=== PATIENT | male | born 1950 | race Caucasian/White ===

== ENCOUNTER 2021-05-25 14:49 | Emergency (ER) | payer OTHER, SELFPAY ==
--- NOTE | ~2021-05-25 | XR_ITS ---
EXAMINATION: XR chest 2V DATE: 05/25/2021 15:30 INDICATION: Fever, cough, and wheezing. TECHNIQUE: Frontal and lateral views of the chest were obtained. COMPARISON: Chest 2 views 03/27/2016 FINDINGS: There are nodules in the lower lung zones measuring up to 1.6 cm on the left. No pleural ef fusion or pneumothorax. The heart size is normal. Calcified mediastinal lymph nodes are consistent wi th old granulomatous disease. IMPRESSION: 1. Nodules in the lower lung zone suspicious for infection or malignancy. Noncontrast chest CT is rec ommended. Reviewed, dictated and finalized at location B. IMPRESSION: 1. Nodules in the lower lung zone suspicious for infection or malignancy. Nonco ntrast chest CT is recommended.
--- NOTE | 2021-05-25 14:50 | ED.FEVER ---
HPI - Fever General Chief Complaint: Upper Respiratory Infection Stated Complaint: Fever/Chills Time Seen by Provider: 05/25/21 14:50 Source: patient and RN notes reviewed History of Present Illness HPI Narrative: Patient is a 70-year-old male who presents the urgent care with complaints of fever, chills, postnasal drainage and fatigue. Patient states he is also had some chest congestion. Patient is a chronic smoker and denies of any shortness of breath. Patient states has been taking Tylenol for his fever. Denies of any known ill contacts. Denies of any nausea or vomiting. No other acute complaints. No acute distress noted. Patient aware of the plan of care. Some parts of this dictation were generated by voice recognition software and may contain typographical and/or grammatical inaccuracies. Related Data Home Medications Medication Instructions Recorded Confirmed amlodipine 5 mg PO DAILY 05/25/21 05/25/21 lisinopril-hydrochlorothiazide 1 tablet PO DAILY 05/25/21 05/25/21 Allergies Allergy/AdvReac Type Severity Reaction Status Date / Time No Known Allergies Allergy Unverified 05/25/21 15:13 Review of Systems Review of Systems: CONSTITUTIONAL: Reports a fever and chills with fatigue EYES: Denies visual changes, redness, or discharge. ENT: Reports of postnasal drainage, rhinorrhea CARDIOVASCULAR: Denies chest pain, palpitations, or edema. RESPIRATORY: Reports of chest congestion and cough GASTROINTESTINAL: Denies abdominal pain, nausea, vomiting, or diarrhea. GENITOURINARY: Denies dysuria or hematuria. SKIN: Denies rash or itching. MUSCULOSKELETAL: Denies back pain, joint pain, or myalgia. NEUROLOGIC: Denies headache, numbness, or weakness. All other systems reviewed are negative, except as documented in HPI. PMFSH Comments At the time of my signature, I reviewed and agree with the nursing past medical, surgical, social, and family history. There is no relevant family history pertinent to the patient complaint. Exam Narrative: GENERAL: This is a well-nourished, well-developed patient, in no apparent distress. HEAD: normocephalic, atraumatic. EYES: PERRL. Sclera clear/white. Vision is grossly intact. EARS: External ears normal, auditory canals clear and without drainage, TMs normal without perforation. Hearing grossly intact. NOSE: External nose normal with no obvious nasal discharge, nares without redness, no rhinorrhea. THROAT: Mucous membranes moist, moderate erythema noted posterior oropharynx with moderate postnasal drainage NECK: Neck supple, non-tender without lymphadenopathy, masses or thyromegaly. CARDIOVASCULAR: Regular rate and rhythm without murmurs, gallops, or rubs. RESPIRATORY: Inspiratory/expiratory wheezes throughout with crackles SKIN: warm, intact with no suspicious lesions or rash, good texture and turgor. NEURO: awake, alert, and oriented to person, place and time. There were no obvious focal neurologic abnormalities. EXTREMITIES: No clubbing, cyanosis, or edema. Course Course Level of Care: Express Care Visit Vital Signs Vital signs: Vital Signs Temperature 102 F H 05/25/21 14:54 Pulse Rate 100 05/25/21 14:54 Respiratory Rate 28 H 05/25/21 14:54 Blood Pressure 150/67 H 05/25/21 14:54 Pulse Oximetry 97 05/25/21 14:54 Temperature 102 F H 05/25/21 14:54 Pulse Rate 100 05/25/21 14:54 Respiratory Rate 28 H 05/25/21 14:54 Blood Pressure 150/67 H 05/25/21 14:54 Pulse Oximetry 97 05/25/21 14:54 Reviewed-patient is informed that they may have pre-hypertension or hypertension based on a blood pressure reading in the department. I recommend the patient call the primary care provider listed on their discharge instructions or a physician of their choice this week to arrange follow-up for further evaluation of possible pre-hypertension or hypertension. MDM - Fever MDM Narrative Medical decision making narrative: Reviewed lab results with the patient. He is aware that
[2021-05-25 14:54] VITALS: BP 150/67; PULSE 100; RESP 28; TEMP 38.8; O2SAT 97
== END 2021-05-25 16:05 | disposition home or self-care (01) ==
PROVIDERS: Emergency Provider Nurse Practitioner Family
DX: R91.1 Solitary pulmonary nodule (principal); J18.1 Lobar pneumonia, unspecified organism; F17.200 Nicotine dependence, unspecified, uncomplicated; Z20.822 Contact with and (suspected) exposure to COVID-19
CPT/HCPCS: 71046; 87426; 87804; 99203; C9803; G0463

== ENCOUNTER 2022-10-29 16:02 | Emergency (ER) | payer OTHER, SELFPAY ==
[2022-10-29 16:12] VITALS: BP 126/62; PULSE 104; RESP 20; TEMP 37.5; O2SAT 93
--- NOTE | 2022-10-29 16:57 | ED.URI ---
HPI - URI/Sore Throat General Chief Complaint: Upper Respiratory Infection Stated Complaint: shortness of breath History of Present Illness HPI Narrative: Patient presents with productive cough at times feels short of breath at times. No chest pain no fever. Patient states he tired started taking Mucinex and does have a productive cough at times Related Data Home Medications Medication Instructions Recorded Confirmed amlodipine 5 mg tablet 5 mg PO DAILY 05/25/21 10/29/22 lisinopril 20 1 tablet PO DAILY 05/25/21 10/29/22 mg-hydrochlorothiazide 12.5 mg tablet Allergies Allergy/AdvReac Type Severity Reaction Status Date / Time No Known Allergies Allergy Verified 10/29/22 16:38 Review of Systems Review of Systems: CONSTITUTIONAL: Denies fever, chills, or sweats. EYES: Denies visual changes, redness, or discharge. ENT: Denies rhinorrhea, congestion, sore throat, or otalgia. CARDIOVASCULAR: Denies chest pain, palpitations, or edema. RESPIRATORY: Denies cough or dyspnea. GASTROINTESTINAL: Denies abdominal pain, nausea, vomiting, or diarrhea. GENITOURINARY: Denies dysuria or hematuria. SKIN: Denies rash or itching. MUSCULOSKELETAL: Denies back pain, joint pain, or myalgia. NEUROLOGIC: Denies headache, numbness, or weakness. PSYCHIATRIC: Denies anxiety or depression. PMFSH Comments At time of signature, agree with nursing past medical, surgical, social and family history. There is no relevant family history pertinent to the presenting complaint Exam Narrative: The patient is a well-developed, well-nourished in no acute distress. SKIN: Skin is warm and dry without erythema, swelling or exudate. There is good turgor. No tenting. HEAD: Atraumatic. Normocephalic. No temporal or scalp tenderness. EYES: Moist and bright. Sclera and conjunctivae normal. No discharge. PERRLA. Extraocular motions intact. Gross visual acuity intact. EARS: Pinna is normal shape and contour. Clear external auditory canals. TM pearly davila with good cone of light, no erythema or suppuration. Bilateral cerumen noted no gross hearing deficit. NOSE: pink, moist mucosa with good air movement. Clear rhinorrhea without nasal flaring. Septum midline. Mouth: moist mucous membranes. THROAT; mild erythema noted to posterior oropharynx with moderate postnasal drainage. Without exudate or ulceration.. Uvula midline. Normal movement of soft palate. NECK: Supple and nontender with full range of motion without discomfort. No meningeal signs. LUNGS: Equal and bilateral breath sounds without wheezes, rales or rhonchi. CHEST: The chest wall is without retractions or use of accessory muscles. Few scattered inspiratory wheezes HEART: Has a regular rate and rhythm without murmur, gallops, click or rub. ABDOMEN: Soft, nontender with positive active bowel sounds. No rebound tenderness. EXTREMITIES: Without cyanosis, clubbing or edema. Equal 2+ distal pulses and 2 second capillary refill noted. NEUROLOGIC: alert, active, . The patient moves all extremities with normal muscle strength. Normal muscle tone is noted. Normal coordination is noted. NO focal neurological findings noted. Course Course Level of Care: Express Care Visit Vital Signs Vital signs: Vital Signs Temperature 37.5 C 10/29/22 16:12 Pulse Rate 104 H 10/29/22 16:12 Respiratory Rate 20 10/29/22 16:12 Blood Pressure 126/62 10/29/22 16:12 Pulse Oximetry 93 10/29/22 16:12 Oxygen Delivery Room Air 10/29/22 16:12 Temperature 37.5 C 10/29/22 16:12 Pulse Rate 104 H 10/29/22 16:12 Respiratory Rate 20 10/29/22 16:12 Blood Pressure 126/62 10/29/22 16:12 Pulse Oximetry 93 10/29/22 16:12 Oxygen Delivery Room Air 10/29/22 16:12 MDM - URI/Sore Throat Lab Data Labs: Lab Results 10/29/22 Range/Units 16:28 POC SARS CoV-2 Ag Negative (Negative) Influenza A Screen Negative Referenc
== END 2022-10-29 17:03 | disposition home or self-care (01) ==
PROVIDERS: Emergency Provider Nurse Practitioner Family
DX: J06.9 Acute upper respiratory infection, unspecified (principal); J44.9 Chronic obstructive pulmonary disease, unspecified; Z79.899 Other long term (current) drug therapy; Z20.822 Contact with and (suspected) exposure to COVID-19
CPT/HCPCS: 87426; 87804; 99213; C9803; G0463

== ENCOUNTER 2023-10-16 14:24 | Emergency (ER) | payer OTHER, SELFPAY ==
[2023-10-16 14:38] VITALS: BP 141/70; PULSE 81; RESP 20; TEMP 37.4; O2SAT 95
[2023-10-16 14:40] VITALS: BP 141/70; PULSE 81; RESP 20; TEMP 37.4; O2SAT 95
--- NOTE | 2023-10-16 14:55 | ED.BACK ---
HPI - Back Pain/Injury General Chief Complaint: Back Pain/Injury Stated Complaint: Urinary Problem Time Seen by Provider: 10/16/23 14:53 Source: patient, family, RN notes reviewed and old records reviewed Mode of arrival: ambulatory Limitations: no limitations History of Present Illness HPI Narrative: 73 year old male presents to [facility] care with complaints of low back pain for 1 week duration. Patient reports no burning,urgency or frequency of urination no CVA tenderness on exam. Patient reports that he has heart problems and he thought he should get some exercise so he has been riding a bicycle and wonders if pain is related to that. Patient reports that he has taken some Tylenol and he has also been using heating pad with vibration to his lower back for discomfort. Patient reports that he was diagnosed with heart problems about 6 months ago and he quit smoking then.Patient reports that he has history of prior back strain. MD elicited complaint: back pain Onset (ago): week(s) (1) Severity: moderate Pain scale (0-10): 4 Quality: aching Treatments prior to arrival: heat therapy and acetaminophen Related Data Home Medications Medication Instructions Recorded Confirmed amlodipine 5 mg tablet 5 mg PO DAILY 05/25/21 10/29/22 lisinopril 20 1 tablet PO DAILY 05/25/21 10/29/22 mg-hydrochlorothiazide 12.5 mg tablet aspirin 81 mg tablet,delayed mg 10/16/23 release atorvastatin 10 mg tablet mg 10/16/23 carvedilol 3.125 mg tablet mg 10/16/23 clopidogrel 75 mg tablet mg 10/16/23 empagliflozin 10 mg tablet mg 10/16/23 (Jardiance) furosemide 40 mg tablet mg 10/16/23 pantoprazole 40 mg tablet,delayed mg PO 10/16/23 release sacubitril 24 mg-valsartan 26 mg tablet 10/16/23 tablet (Entresto) spironolactone 25 mg tablet mg 10/16/23 Allergies Allergy/AdvReac Type Severity Reaction Status Date / Time No Known Allergies Allergy Verified 10/29/22 16:38 Review of Systems Review of Systems: CONSTITUTIONAL: Denies fever, chills, or sweats. EYES: Denies visual changes, redness, or discharge. ENT: Denies rhinorrhea, congestion, sore throat, or otalgia. CARDIOVASCULAR: Denies chest pain, palpitations, or edema. RESPIRATORY: Denies cough or dyspnea. GASTROINTESTINAL: Denies abdominal pain, nausea, vomiting, or diarrhea. GENITOURINARY: Denies dysuria or hematuria. SKIN: Denies rash or itching. MUSCULOSKELETAL: Reports low back pain, joint pain, or myalgia. NEUROLOGIC: Denies headache, numbness, or weakness. PSYCHIATRIC: Positive for anxiety or depression. All systems reviewed & are unremarkable except as noted in HPI and below PMFSH Past Medical History Medical History (Updated 10/17/23 @ 15:40 by Melva Scales NP) Anxiety and depression CHF (congestive heart failure), NYHA class III COPD (chronic obstructive pulmonary disease) GERD (gastroesophageal reflux disease) Hypertension Presence of combination internal cardiac defibrillator (ICD) and pacemaker Social History Social History (Updated 10/17/23 @ 15:30 by Melva Scales NP) Smoking packs per day: 2 Smoking cigarettes per day: 40.0 Years smoked: 50 Smoking pack-years: 100.00 Smoking status: Former smoker Tobacco type: cigarettes Alcohol intake: former Substance use type: does not use Gender identity (if verbalized by the patient): Male Comments At time of signature, agree with nursing past medical, surgical, social and family history. There is no relevant family history pertinent to the presenting complaint Exam Narrative: GENERAL: Well-appearing, well-nourished, and in no acute distress. HEAD: Normocephalic, atraumatic. EYES: PERRLA and EOMI. ENT: Nares clear, no rhinorrhea or epistaxis. Mucous membranes moist. NECK: Supple.no lymphadenopathy CHEST: Decreased to auscultation. No respiratory distress.SAO2 95% on room air HEART: Regular rate and rhythm. No murmur heard. Normal peripheral pulses, . ABDOMEN: Soft,
== END 2023-10-16 15:13 | disposition home or self-care (01) ==
PROVIDERS: Emergency Provider Registered Nurse
DX: S39.012A Strain of muscle, fascia and tendon of lower back, initial encounter (principal); X58.XXXA Exposure to other specified factors, initial encounter; I11.0 Hypertensive heart disease with heart failure; I50.9 Heart failure, unspecified; J44.9 Chronic obstructive pulmonary disease, unspecified; K21.9 Gastro-esophageal reflux disease without esophagitis; Z95.810 Presence of automatic (implantable) cardiac defibrillator; Z87.891 Personal history of nicotine dependence
CPT/HCPCS: 99213; G0463

== ENCOUNTER 2024-07-08 14:29 | Emergency (ER) | payer OTHER, SELFPAY ==
--- NOTE | ~2024-07-08 | XR_ITS ---
XR pelvis 1-2V 07/08/2024 15:35 Indication: Low back pain Procedure: AP pelvis Comparison: No prior studies for comparison. Findings: Pelvic rings intact. There is lower lumbar spondylosis. There is mild osteoarthritis of the hips. No fracture, subluxation or dislocation. Sacral foramen are symmetric. Impression: 1: Mild osteoarthritis of the hips. Reviewed, dictated and finalized at location A. Impression: 1: Mild osteoarthritis of the hips.
--- NOTE | ~2024-07-08 | XR_ITS ---
EXAMINATION: XR lumbar spine 2-3V DATE: 07/08/2024 15:35 INDICATION: Bilateral low back pain TECHNIQUE: Anteroposterior and lateral views of the lumbar spine, and cone-down lateral view of the l umbosacral junction were obtained. COMPARISON: None. FINDINGS: 9 degrees lumbar dextrocurvature. Sagittal alignment is normal. Vertebral body heights are normal. Mi ld disc height loss at L1-L2, L4-L5 and L5-S1. Atherosclerotic abdominal aorta extending into the [place] ateral iliac and visualized proximal femoral arteries. Mild bilateral hip and sacroiliac osteoarthrit is. Bone island at the right femoral head. IMPRESSION: 1. 9 degrees lumbar dextrocurvature with mild spondylosis. Reviewed, dictated and finalized at location A.
--- OUTSIDE RECORDS SUMMARY | 2024-07-08 14:35 | XMS_ITS ---
Author Organization [facility] Address [address] [facility], [address] [address] Phone Care Team Providers Care Loom Setter Name Role Phone Marina Villafana MD Primary Care Provider [facility] Status:Enrolled (Active) Start date:03/05/2024 Enrollment date:03/05/2024 Related social drivers of health:Social Connections, Alcohol Use, Tobacco Use, Financial Resource Strain, Depression, Stress, Physical Activity, Food Insecurity, Transportation Needs, Housing Stability, Utilities Continued Care and Services Coordination
--- OUTSIDE RECORDS SUMMARY | 2024-07-08 14:36 | XMS_ITS | Data Portability ---
Author Organization [facility] [place] [facility] Address [address] [place] [address] Care Team Providers Care Tomographic Tech Name Role Phone HUGH ONEILLSAGRARIODAR Primary Care Provider MAMI MONTOYA Intelligence Group Supervisor MAKENZIE EVANS Sludge Control Attendant Assessment No assessment recorded. Plan of Treatment Reminders Order Date Submit Date Provider Last Modified By Organization Details Last Modified Time Details Appointments None record ed. Lab CMP, serum or plasma 2022 023 [facility], [address] [place] [address], [address], [place], [address], 3 06:17:00 CBC w/ auto diff 2022 023 [facility], [address] [place] [address], [address], [place], [address], 3 06:17:00 lipid panel, serum 2022 023 [facility], [address] [place] [address], [address], [place], [address], 3 06:16:59 PSA, serum or plasma 2022 023 [facility], [address] [place] [address], [address], [place], [address], 3 08:21:49 TSH, ultra- sensit felix, serum 2022 023 [facility], Han[address], [address], [place], [address], 3 08:21:49 TSH + free T4, serum 2021 [facility], Hanane [address], [address], [place], [address], 08:19:52 T3, free, serum or plasma 2021 [facility], [address], [address], [place], [address], 08:19:55 CMP, serum or plasma 2021 022 [facility], Hanane Macield[address]rizi[address], [address], [place], [address], 08:19:53 lipid panel, serum 2021 022 [facility] QUIÑONESRIM[facility], Hanane [address], [address], [place], [address], 08:19:53 CBC w/ auto diff 2021 022 [facility] QUIÑONESR[facility], [address], [address], [place], [address], 08:19:54 PSA, serum or plasma 2021 022 [facility]ON[facility] Han[address], [address], [place], [address], 08:19:54 TSH + free T4, serum 2021 022 [facility] [address], [address], [place], [address], 2 08:22:31 Referral endocr inolog y referr al 2023 024 [facility], 2 [facility] [address], [place], [address], 4 14:04:28 gastro entero logist referr al 2022 023 Tim Richard MD, [address] [facility] [address], [address], [place], [address], 4 17:51:57 gastro entero logist referr al 2022 023 Kassi Samayoa MD, 1 [facility], [place], [address], 3 17:09:55 genera l surgeo n referr al 2021 022 justin Henley MD, [address] [facility] [address], [place], [address], 3 11:45:15 endocr inolog y referr al 2021 022 justin Mcdonald MD, [address] [facility] [address], [address], [place], [address], 2 15:31:10 genera l surgeo n referr al 2021 022 justin Henley MD, 4 [facility] , [address], [place], [address], 3 11:45:09 gastro entero logist referr al 2021 022 justin Tinsley, [address] [facility] [address], [place], [address], 3 11:10:05 psychi atrist referr al 2021 022 gonsalo [facility], [address] [place], [address], 2 14:10:04 behavi oral health referr al 2021 022 caesar Post (), [address] [place] [address], [address], 2 14:54:31 gastro entero logist referr al 2021 022 Will Tinsley, 4 [facility], [facility] [address] [facility] [address], [place], [address], 2 14:54:11 Procedures None record ed. Surgeries None record ed. Imaging CT, chest, w/o contra st 2022 023 [facility], [address] [place], [address], 4 12:19:18 CT, chest, w/o contra st 2021 022 [facility], [address] [place], [address], 2 12:08:49 XR, lumbos acral spine, 2 or 3 view 2021 022 [facility], [address] [place], [address], 2 03:51:15 CT, chest, w/o contra st 2021 022 [facility]obbinsma [facility], [address] [place], [address], 2 11:44:15 Medication Orders ipratr opium 0.5 mg-alb uterol 3 mg (2.5 mg base)/ 3 mL nebuli zation soln 2023 024 [id number] [address] [place], [address], 4 16:27:07 benzon atate 100 mg capsul e 2022 024 [id number] [address] [place], [address], 4 15:37:32 Incrus e Ellipt a 62.5 mcg/ac tuatio n powder for inhala tion 2022 023 [id number] [address] [place], [address], 3 16:34:44 chlorh exidin e glucon ate 0.12 % mouthw gemma 2022 023 [id number] [address] [place], [address], 4 15:35:59 amoxic illin 500 mg capsul e 2022 023 [id number] [address] [place], [address], 3 16:20:43 Symbic ort 160 mcg-4. 5 mcg/ac tuatio n HFA aeroso l inhale r 2022 023 [facility] [address] [place], [address], 4 15:40:05 tizani dine 4 mg tablet 2021 [facility] #6833, [address] [place], [address], 4 15:39:51 meloxi cam 7.5 mg tablet 2021 [facility] #6833, [address] [place], [address], 4 15:37:43 albute rol sulfat e HFA 90 mcg/ac tuatio n aeroso l inhale r 2021 [facility] #[id number], [address] [place], [address], 4 15:40:11 buprop ion HCl XL 150 mg 24 hr tablet , extend ed releas e 2021 [facility] #[id number], [address] [place], [address], 4 15:37:09 Patient TargetsNo targets recorded. Patient Instructions Encounter Date Encounter Id Patient Instructions Last Modified By Organization Details Last Modified Time 06/01/2021 [id number] deciding about using medicines to quit smoking ssuthan Not available 06/01/2021 15:59:08 Quitting Tobacco : Care Instructions ssuthan Not available 06/01/2021 15:59:08 learning about high blood pressure ssuthan Not available 06/01/2021 15:59:08 11/07/2021 [id number] influenza (flu) vaccine: care instructions ssuthan Not available 11/07/2021 15:19:31 deciding about using medicines to quit smoking ssuthan Not available 11/07/2021 15:19:31 Quitting Tobacco : Care Instructions ssuthan Not available 11/07/2021 15:19:30 back care and preventing injuries: care instructions ssuthan Not available 11/07/2021 15:19:31 learning about high blood pressure ssuthan Not available 11/07/2021 15:19:30 04/25/2022 [id number] deciding about using medicines to quit smoking ssuthan Not available 04/25/2022 16:27:38 Quitting Tobacco : Care Instructions ssuthan Not available 04/25/2022 16:27:38 learning about high blood pressure ssuthan Not available 04/25/2022 16:27:38 chronic obstructive pulmonary disease (COPD): care instructions ssuthan Not available 04/25/2022 16:27:38 learning about copd and how to prevent lung infections ssuthan Not available 04/25/2022 16:27:38 10/31/2022 [id number] deciding about using medicines to quit smoking ssuthan Not available 10/31/2022 16:34:44 Quitting Tobacco : Care Instructions ssuthan Not available 10/31/2022 16:34:44 cough: care instructions ssuthan Not available 10/31/2022 16:34:44 chronic obstructive pulmonary disease (COPD): care instructions ssuthan Not available 10/31/2022 16:34:43 learning about copd and how to prevent lung infections ssuthan Not available 10/31/2022 16:34:43 leg and ankle edema: care instructions ssuthan Not available 10/31/2022 16:34:44 learning about high blood pressure ssuthan Not available 10/31/2022 16:34:43 02/13/2023 [id number] deciding about using medicines to quit smoking ssuthan Not available 02/13/2023 16:23:31 Quitting Tobacco : Care Instructions ssuthan Not available 02/13/2023 16:23:31 learning about high blood pressure ssuthan Not available 02/13/2023 16:23:31 chronic obstructive pulmonary disease (COPD): care instructions ssuthan Not available 02/13/2023 16:23:32 learning about copd and how to prevent lung infections ssuthan Not available 02/13/2023 16:23:32 Reason for Referral [employer]ist Referral for Screening for malignant neoplasm of colon Referring Physician: Marina Oneill, Internal Medicine, Encounter Date: 06/01/2021 Psychiatrist Referral for Mi xed anxiety and depressive disorder Referring Physician: Marina Oneill, Internal Medicine, Encounter Date: 06/01/2021 Behavioral Health Referral f or Mixed anxiety and depressive disorder Referring Physician: Marina Oneill Internal Medicine, Encounter Date: 06/01/2021 [employer] Specialist Referral for Screening for malignant neoplasm of colon Referring Physician: Marina Oneill Internal Medicine, Encounter Date: 11/07/2021 Endocrinology Referral for S ubclinical hyperthyroidism Referring Physician: Marina Oneill Internal Medicine, Encounter Date: 11/07/2021 General Surgeon Referral for Mass of axilla Referring Physician: Marina Oneill Internal Medicine, Encounter Date: 11/07/2021 General Surgeon Referral for Mass of skin of neck Referring Physician: Marina Oneill Internal Medicine, Encounter Date: 11/07/2021 [employer] Specialist Referral for Screening for malignant neoplasm of colon Referring Physician: Marina Oneill Internal Medicine, Encounter Date: 04/25/2022 [employer]ist Referral for Screening for malignant neoplasm of colon Referring Physician: Marina Oneill Internal Medicine, Encounter Date: 10/31/2022 Endocrinology Referral for T hyroid stimulating hormone level below reference range Referring Physician: Marina Oneill Internal Medicine, Encounter Date: 02/13/2023 Results Created Date Observation Date Name Description Value Unit Range Abnormal Flag Note LastModifiedBy Organization Detail LastModifiedTime 02/16/19 23 02/16/2022 COLOG UARD cologuard result Cancel led - Order d not applic able Not Available [facility] (Cologuard Orders Only) [address], [place], [address], 02/16/2022 09:47:14 06/02/19 22 06/02/2021 TSH+F REE T4 TSH 0.070 uIU/m L 0.450- 4.500 below low normal Not Available [facility] ([facility]) [address] [facility], [place], [address], 06/02/2021 08:22:31 06/02/19 22 06/02/2021 TSH+F REE T4 T4,free(dire ct) 1.29 NG/dL 0.82-1 .77 Not Available [facility] ([facility]) [address] [facility], [place], [address], 06/02/2021 08:22:31 06/02/19 22 06/03/2021 TRIIO DOTHY APRIL E (T3) triiodothyro nine (T3) 104 NG/dL 71-180 Not Available [facility] ([facility]) [address] [place], [address], 06/03/2021 06:14:57 06/02/19 22 06/02/2021 PLEAS E NOTE please note Commen t We have recei radha your reque st for addit ional testi ng or test verif icati on. You will be notif ied if we are unabl e to proce ss your reque st. Not Available [facility] ([facility]) [address] [facility], [place], [address], 06/03/2021 06:14:58 06/02/19 22 06/02/2021 CANDACE EN AUTHO RIZAT ION written authorizatio n Commen t Candace en Autho rizat ion Recei radha. Autho rizat ion recei radha from CANDACE EN REQUE ST 06-02 Logge d by Kimmy mike Not Available [facility] ([facility]) [address] [facility], [place], [address], 06/03/2021 06:14:59 11/08/1911/08/2021 TSH+F REE T4 TSH 0.222 uIU/m L 0.450- 4.500 below low normal Not Available [facility] ([facility]) [address] [place], [address], 11/08/2021 08:19:52 11/08/1911/08/2021 TSH+F REE T4 T4,free(dire ct) 0.97 NG/dL 0.82-1 .77 Not Available [facility] ([facility]) [address] [place], [address], 11/08/2021 08:19:52 11/08/19 22 11/08/2021 LIPID PANEL cholesterol, total 180 mg/dL 100-19 9 Not Available [facility] ([facility]) [address] [place], [address], 11/08/2021 08:19:52 11/08/1911/08/2021 LIPID PANEL triglyceride s 178 mg/dL 0-149 above high normal Not Available [facility] ([facility]) [address] [place], [address], 11/08/2021 08:19:52 11/08/19 22 11/08/2021 LIPID PANEL HDL cholesterol 30 mg/dL >39 below low normal Not Available [facility] ([facility]) [address] [place], [address], 11/08/2021 08:19:52 11/08/19 22 11/08/2021 LIPID PANEL VLDL cholesterol willie 32 mg/dL 5-40 Not Available [facility] ([facility]) [address] [place], [address], 11/08/2021 08:19:52 11/08/1911/08/2021 LIPID PANEL LDL chol calc ([facility]) 118 mg/dL 0-99 above high normal Not Available [facility] ([facility]) [address] [place], [address], 11/08/2021 08:19:52 11/08/19 22 11/08/2021 COMP. METAB OLIC PANEL (14) glucose 86 mg/dL 70-99 Ple ase note refer ence inter leo gian e Not Available [facility] ([facility]) [address] [facility], [place], [address], 11/08/2021 08:19:53 11/08/19 22 11/08/2021 COMP. METAB OLIC PANEL (14) BUN 12 mg/dL 8-27 Not Available [facility] ([facility]) [address] [facility] [place], [address], 11/08/2021 08:19:53 11/08/19 22 11/08/2021 COMP. METAB OLIC PANEL (14) creatinine 0.84 mg/dL 0.76-1 .27 Not Available [facility] ([facility]) [address] [facility], [place], [address], 11/08/2021 08:19:53 11/08/19 22 11/08/2021 COMP. METAB OLIC PANEL (14) eGFR 93 mL/mi n/1.7 3 >59 Not Available [facility] ([facility]) [address] [facility], [place], [address], 11/08/2021 08:19:53 11/08/19 22 11/08/2021 COMP. METAB OLIC PANEL (14) BUN/creatini ne ratio 14 10-24 Not Available [facility] ([facility]) [address] [facility], [place], [address], 11/08/2021 08:19:53 11/08/19 22 11/08/2021 COMP. METAB OLIC PANEL (14) sodium 142 mmol/ L 134-14 4 Not Available [facility] ([facility]) [address] [facility] [place], [address], 11/08/2021 08:19:53 11/08/19 22 11/08/2021 COMP. METAB OLIC PANEL (14) potassium 4.7 mmol/ L 3.5-5. 2 Not Available [facility] ([facility]) [address] [place], [address], 11/08/2021 08:19:53 11/08/19 22 11/08/2021 COMP. METAB OLIC PANEL (14) chloride 102 mmol/ L 96-106 Not Available [facility] ([facility]) [address] [facility], [place], [address], 11/08/2021 08:19:53 11/08/19 22 11/08/2021 COMP. METAB OLIC PANEL (14) carbon dioxide, total 25 mmol/ L 20-29 Not Available [facility] ([facility]) [address] [facility], [place], [address], 11/08/2021 08:19:53 11/08/19 22 11/08/2021 COMP. METAB OLIC PANEL (14) calcium 9.2 mg/dL 8.6-10 .2 Not Available [facility] ([facility]) [address] [facility], [place], [address], 11/08/2021 08:19:53 11/08/19 22 11/08/2021 COMP. METAB OLIC PANEL (14) protein, total 7.0 g/dL 6.0-8. 5 Not Available [facility] ([facility]) [address] [facility], [place], [address], 11/08/2021 08:19:53 11/08/19 22 11/08/2021 COMP. METAB OLIC PANEL (14) albumin 4.3 g/dL 3.7-4. 7 Not Available [facility] ([facility]) [address] [facility], [place], [address], 11/08/2021 08:19:53 11/08/19 22 11/08/2021 COMP. METAB OLIC PANEL (14) globulin, total 2.7 g/dL 1.5-4. 5 Not Available [facility] ([facility]) [address] [facility], [place], [address], 11/08/2021 08:19:53 11/08/19 22 11/08/2021 COMP. METAB OLIC PANEL (14) A/G ratio 1.6 1.2-2. 2 Not Available [facility] ([facility]) [address] [place], [address], 11/08/2021 08:19:53 11/08/19 22 11/08/2021 COMP. METAB OLIC PANEL (14) bilirubin, total 0.2 mg/dL 0.0-1. 2 Not Available [facility] ([facility]) [address] [place], [address], 11/08/2021 08:19:53 11/08/19 22 11/08/2021 COMP. METAB OLIC PANEL (14) alkaline phosphatase 122 IU/L 44-121 above high normal Not Available [facility] ([facility]) [address] [place], [address], 11/08/2021 08:19:53 11/08/19 22 11/08/2021 COMP. METAB OLIC PANEL (14) AST (SGOT) 30 IU/L 0-40 Not Available [facility] ([facility]) [address] [place], [address], 11/08/2021 08:19:53 11/08/19 22 11/08/2021 COMP. METAB OLIC PANEL (14) ALT (SGPT) 20 IU/L 0-44 Not Available [facility] ([facility]) [address] [place], [address], 11/08/2021 08:19:53 11/08/19 22 11/07/2021 PSA TOTAL (REFL EX TO FREE) reflex criteria Commen t The perce nt free PSA is perfo rmed on a refle x basis only when the total PSA is betwe en 4.0 and 10.0 ng/mL . Not Available [facility] ([facility]) [address] [place], [address], 11/08/2021 08:19:54 11/08/19 22 11/08/2021 PSA TOTAL (REFL EX TO FREE) prostate specific Ag 2.6 NG/mL 0.0-4. 0 Eddi ECLIA metho dolog y. Accor tobias to the Ameri can [employer]rolo g[employer] Ass[employer] iatio n, Serum PSA shoul d decre ase and remai n at undet ectab le level s after radic al prost atect rocky. The AUA defin es bioch emica l recur rence as an initi al PSA value 0.2 ng/mL or great er follo wed by a subse quent confi rmato ry PSA value 0.2 ng/mL or great er. Value s obtai parviz with diffe rent assay metho ds or kits canno t be used inter springer eably . Resul ts canno t be inter prete d as absol felice evide nce of the prese nce or absen ce of [facility]. Not Available [facility] ([facility]) [address] [place], [address], 11/08/2021 08:19:54 11/08/19 22 11/08/2021 CBC WITH DIFFE RENTI AL/PL ATELE T WBC 6.7 x10e3 /uL 3.4-10 .8 Not Available [facility] ([facility]) [address] [place], [address], 11/08/2021 08:19:54 11/08/19 22 11/08/2021 CBC WITH DIFFE RENTI AL/PL ATELE T RBC 5.13 x10e6 /uL 4.14-5 .80 Not Available [facility] ([facility]) [address] [place], [address], 11/08/2021 08:19:54 11/08/19 22 11/08/2021 CBC WITH DIFFE RENTI AL/PL ATELE T hemoglobin 16.3 g/dL 13.0-1 7.7 Not Available [facility] ([facility]) [address] [place], [address], 11/08/2021 08:19:54 11/08/19 22 11/08/2021 CBC WITH DIFFE RENTI AL/PL ATELE T hematocrit 47.4 % 37.5-5 1.0 Not Available [facility] ([facility]) [address] [facility], [place], [address], 11/08/2021 08:19:54 11/08/19 22 11/08/2021 CBC WITH DIFFE RENTI AL/PL ATELE T MCV 92 fL 79-97 Not Available [facility] ([facility]) [address] [facility], [place], [address], 11/08/2021 08:19:54 11/08/19 22 11/08/2021 CBC WITH DIFFE RENTI AL/PL ATELE T MCH 31.8 pg 26.6-3 3.0 Not Available [facility] ([facility]) [address] [facility], [place], [address], 11/08/2021 08:19:54 11/08/19 22 11/08/2021 CBC WITH DIFFE RENTI AL/PL ATELE T MCHC 34.4 g/dL 31.5-3 5.7 Not Available [facility] ([facility]) [address] [facility], [place], [address], 11/08/2021 08:19:54 11/08/19 22 11/08/2021 CBC WITH DIFFE RENTI AL/PL ATELE T RDW 13.0 % 11.6-1 5.4 Not Available [facility] ([facility]) [address] [facility], [place], [address], 11/08/2021 08:19:54 11/08/19 22 11/08/2021 CBC WITH DIFFE RENTI AL/PL ATELE T platelets 301 x10e3 /uL 150-45 0 Not Available [facility] ([facility]) [address] [place], [address], 11/08/2021 08:19:54 11/08/19 22 11/08/2021 CBC WITH DIFFE RENTI AL/PL ATELE T neutrophils 52 % notest ab. Not Available [facility] ([facility]) [address] [facility], [place], [address], 11/08/2021 08:19:54 11/08/19 22 11/08/2021 CBC WITH DIFFE RENTI AL/PL ATELE T lymphs 34 % notest ab. Not Available [facility] ([facility]) [address] [facility], [place], [address], 11/08/2021 08:19:54 11/08/19 22 11/08/2021 CBC WITH DIFFE RENTI AL/PL ATELE T monocytes 9 % notest ab. Not Available [facility] ([facility]) [address] [facility], [place], [address], 11/08/2021 08:19:54 11/08/19 22 11/08/2021 CBC WITH DIFFE RENTI AL/PL ATELE T eos 4 % notest ab. Not Available [facility] ([facility]) [address] [facility], [place], [address], 11/08/2021 08:19:54 11/08/19 22 11/08/2021 CBC WITH DIFFE RENTI AL/PL ATELE T basos 1 % notest ab. Not Available [facility] ([facility]) [address] [facility], [place], [address], 11/08/2021 08:19:54 11/08/19 22 11/08/2021 CBC WITH DIFFE RENTI AL/PL ATELE T neutrophils (absolute) 3.5 x10e3 /uL 1.4-7. 0 Not Available [facility] ([facility]) [address] [facility], [place], [address], 11/08/2021 08:19:54 11/08/19 22 11/08/2021 CBC WITH DIFFE RENTI AL/PL ATELE T lymphs (absolute) 2.2 x10e3 /uL 0.7-3. 1 Not Available [facility] ([facility]) [address] [facility], [place], [address], 11/08/2021 08:19:54 11/08/19 22 11/08/2021 CBC WITH DIFFE RENTI AL/PL ATELE T monocytes(ab solute) 0.6 x10e3 /uL 0.1-0. 9 Not Available [facility] ([facility]) [address] [facility], [place], [address], 11/08/2021 08:19:54 11/08/19 22 11/08/2021 CBC WITH DIFFE RENTI AL/PL ATELE T eos (absolute) 0.3 x10e3 /uL 0.0-0. 4 Not Available [facility] ([facility]) [address] [facility], [place], [address], 11/08/2021 08:19:54 11/08/19 22 11/08/2021 CBC WITH DIFFE RENTI AL/PL ATELE T baso (absolute) 0.1 x10e3 /uL 0.0-0. 2 Not Available [facility] ([facility]) [address] [facility], [place], [address], 11/08/2021 08:19:54 11/08/19 22 11/08/2021 CBC WITH DIFFE RENTI AL/PL ATELE T immature granulocytes 0 % notest ab. Not Available [facility] ([facility]) [address] [facility], [place], [address], 11/08/2021 08:19:54 11/08/19 22 11/08/2021 CBC WITH DIFFE RENTI AL/PL ATELE T immature grans (abs) 0.0 x10e3 /uL 0.0-0. 1 Not Available [facility] ([facility]) [address] [facility], [place], [address], 11/08/2021 08:19:54 11/08/19 22 11/08/2021 TRIIO DOTHY APRIL E (T3), FREE triiodothyro nine (T3), free 3.6 pg/mL 2.0-4. 4 Not Available [facility] ([facility]) [address] [facility], [place], [address], 11/08/2021 08:19:55 11/01/1910/31/2022 LIPID PANEL cholesterol, total 127 mg/dL 100-19 9 Not Available [facility] [address] [place] [address], [address], 11/01/2022 06:16:59 11/01/1910/31/2022 LIPID PANEL triglyceride s 84 mg/dL 0-149 Not Available [facility] [address] [place] [address], [address], 11/01/2022 06:16:59 11/01/19 23 10/31/2022 LIPID PANEL HDL cholesterol 28 mg/dL 40-999 below low normal Not Available [facility] [address] [place], [address], 11/01/2022 06:16:59 11/01/19 23 10/31/2022 LIPID PANEL VLDL cholesterol willie 17 mg/dL 5-40 Not Available [facility] Department [address] [place], [address], 11/01/2022 06:16:59 11/01/1910/31/2022 LIPID PANEL LDL chol calc ([facility]) 93 mg/dL 0-99 Not Available [facility] Department [address] [place], [address], 11/01/2022 06:16:59 11/01/19 23 10/31/2022 COMP. METAB OLIC PANEL (14) glucose 120 mg/dL 70-99 above high normal Not Available [facility] [address] [place], [address], 11/01/2022 06:17:00 11/01/19 23 10/31/2022 COMP. METAB OLIC PANEL (14) BUN 17 mg/dL 8-27 Not Available [facility] [address] [place], [address], 11/01/2022 06:17:00 11/01/19 23 10/31/2022 COMP. METAB OLIC PANEL (14) creatinine 1.15 mg/dL 0.76-1 .27 Not Available [facility] [address] [place], [address], 11/01/2022 06:17:00 11/01/19 23 10/31/2022 COMP. METAB OLIC PANEL (14) eGFR 67 >=60 Units for eGFR value s are mL/mi n/1.7 3 The eGFR Calcu latio n has not been valid ated for patie nts under the age of 18. If test resul ts are displ ayed for a patie nt under the age of 18, disre omid that value . Not Available [facility] [address] [place], [address], 11/01/2022 06:17:00 11/01/19 23 10/31/2022 COMP. METAB OLIC PANEL (14) BUN/creatini ne ratio 15 10-24 Not Available [facility] Department [address] [place], [address], 11/01/2022 06:17:00 11/01/19 23 10/31/2022 COMP. METAB OLIC PANEL (14) sodium 145 mmol/ L 134-14 4 above high normal Not Available [facility] [address] [place], [address], 11/01/2022 06:17:00 11/01/19 23 10/31/2022 COMP. METAB OLIC PANEL (14) potassium 4.5 mmol/ L 3.5-5. 2 Not Available [facility] [address] [place], [address], 11/01/2022 06:17:00 11/01/19 23 10/31/2022 COMP. METAB OLIC PANEL (14) chloride 103 mmol/ L 96-106 Not Available [facility] [address] [place], [address], 11/01/2022 06:17:00 11/01/19 23 10/31/2022 COMP. METAB OLIC PANEL (14) carbon dioxide, total 30 mmol/ L 20-29 above high normal Not Available [facility] [address] [place], [address], 11/01/2022 06:17:00 11/01/19 23 10/31/2022 COMP. METAB OLIC PANEL (14) calcium 9.1 mg/dL 8.6-10 .2 Not Available [facility] [address] [place], [address], 11/01/2022 06:17:00 11/01/19 23 10/31/2022 COMP. METAB OLIC PANEL (14) protein, total 6.8 g/dL 6.0-8. 5 Not Available [facility] [address] [place], [address], 11/01/2022 06:17:00 11/01/19 23 10/31/2022 COMP. METAB OLIC PANEL (14) albumin 3.9 g/dL 3.8-4. 8 Not Available [facility] [address] [place], [address], 11/01/2022 06:17:00 11/01/19 23 10/31/2022 COMP. METAB OLIC PANEL (14) globulin, total 2.9 g/dL 1.5-4. 5 Not Available [facility] [address] [place], [address], 11/01/2022 06:17:00 11/01/19 23 10/31/2022 COMP. METAB OLIC PANEL (14) A/G ratio 1.3 1.2-2. 2 Not Available [facility] [address] [place] [address], [address], 11/01/2022 06:17:00 11/01/19 23 10/31/2022 COMP. METAB OLIC PANEL (14) bilirubin, total 0.3 mg/dL 0.0-1. 2 Not Available [facility] [address] [place] [address], [address], 11/01/2022 06:17:00 11/01/19 23 10/31/2022 COMP. METAB OLIC PANEL (14) alkaline phosphatase 108 IU/L 44-121 Not Available [facility] Department [address] [place] [address], [address], 11/01/2022 06:17:00 11/01/19 23 10/31/2022 COMP. METAB OLIC PANEL (14) AST (SGOT) 30 IU/L 0-40 Not Available [facility] Department [address] [place] [address], [address], 11/01/2022 06:17:00 11/01/1910/31/2022 COMP. METAB OLIC PANEL (14) ALT (SGPT) 36 IU/L 0-44 Not Available [facility] [address] [place] [address], [address], 11/01/2022 06:17:00 11/01/1910/31/2022 CBC WITH DIFFE RENTI AL/PL ATELE T WBC 8.6 x10e3 /uL 3.4-10 .8 Not Available [facility] [address] [place] [address], [address], 11/01/2022 06:17:00 11/01/1910/31/2022 CBC WITH DIFFE RENTI AL/PL ATELE T RBC 4.62 x10e6 /uL 4.14-5 .80 Not Available [facility] [address] [place] [address], [place], [address], 11/01/2022 06:17:00 11/01/1910/31/2022 CBC WITH DIFFE RENTI AL/PL ATELE T hemoglobin 13.5 g/dL 13.0-1 7.7 Not Available [facility] [address] [place], [address], 11/01/2022 06:17:00 11/01/1910/31/2022 CBC WITH DIFFE RENTI AL/PL ATELE T hematocrit 43.9 % 37.5-5 1.0 Not Available [facility] [address] [place], [address], 11/01/2022 06:17:00 11/01/1910/31/2022 CBC WITH DIFFE RENTI AL/PL ATELE T MCV 95 fL 79-97 Not Available [facility] [address] [place], [address], 11/01/2022 06:17:00 11/01/1910/31/2022 CBC WITH DIFFE RENTI AL/PL ATELE T MCH 29.2 pg 26.6-3 3.0 Not Available [facility] [address] [place], [address], 11/01/2022 06:17:00 11/01/1910/31/2022 CBC WITH DIFFE RENTI AL/PL ATELE T MCHC 30.8 g/dL 31.5-3 5.7 below low normal Not Available [facility] [address] [place], [address], 11/01/2022 06:17:00 11/01/1910/31/2022 CBC WITH DIFFE RENTI AL/PL ATELE T RDW 13.0 % 11.5-1 4.5 Not Available [facility] [address] [place], [address], 11/01/2022 06:17:00 11/01/1910/31/2022 CBC WITH DIFFE RENTI AL/PL ATELE T platelets 283 x10e3 /uL 150-45 0 Not Available [facility] [address] [place], [address], 11/01/2022 06:17:00 11/01/1910/31/2022 CBC WITH DIFFE RENTI AL/PL ATELE T neutrophils 94 % notest b. Not Available [facility] [address] [place], [address], 11/01/2022 06:17:00 11/01/1910/31/2022 CBC WITH DIFFE RENTI AL/PL ATELE T lymphs 4 % notest b. Not Available [facility] [address] [place], [address], 11/01/2022 06:17:00 11/01/1910/31/2022 CBC WITH DIFFE RENTI AL/PL ATELE T monocytes 2 % notest b. Not Available [facility] [address] [place], [address], 11/01/2022 06:17:00 11/01/1910/31/2022 CBC WITH DIFFE RENTI AL/PL ATELE T eos 0 % notest b. Not Available [facility] [address] [place], [address], 11/01/2022 06:17:00 11/01/1910/31/2022 CBC WITH DIFFE RENTI AL/PL ATELE T basos 0 % notest b. Not Available [facility] [address] [place], [address], 11/01/2022 06:17:00 11/01/1910/31/2022 CBC WITH DIFFE RENTI AL/PL ATELE T neutrophils (absolute) 8.1 x10e3 /uL 1.4-7. 0 above high normal Not Available [facility] [address] [place], [address], 11/01/2022 06:17:00 11/01/1910/31/2022 CBC WITH DIFFE RENTI AL/PL ATELE T lymphs (absolute) 0.4 x10e3 /uL 0.7-3. 1 below low normal Not Available [facility] [address] [place], [address], 11/01/2022 06:17:00 11/01/1910/31/2022 CBC WITH DIFFE RENTI AL/PL ATELE T monocytes(ab solute) 0.1 x10e3 /uL 0.1-0. 9 Not Available [facility] [address] [place], [address], 11/01/2022 06:17:00 11/01/1910/31/2022 CBC WITH DIFFE RENTI AL/PL ATELE T eos (absolute) 0.0 x10e3 /uL 0.0-0. 4 Not Available [facility] [address] [place], [address], 11/01/2022 06:17:00 11/01/1910/31/2022 CBC WITH DIFFE RENTI AL/PL ATELE T baso (absolute) 0.0 x10e3 /uL 0.0-0. 2 Not Available [facility] [address] [place], [address], 11/01/2022 06:17:00 11/01/1910/31/2022 CBC WITH DIFFE RENTI AL/PL ATELE T immature granulocytes 0.2 % notest b. Not Available [facility] [address] [place], [address], 11/01/2022 06:17:00 11/01/1910/31/2022 CBC WITH DIFFE RENTI AL/PL ATELE T immature grans (abs) 0.0 x10e3 /uL 0.0-0. 1 Not Available [facility] [address] [place], [address], 11/01/2022 06:17:00 11/01/1910/31/2022 CBC WITH DIFFE RENTI AL/PL ATELE T NRBC 0 % 0-0 Not Available [facility] [address] [place], [address], 11/01/2022 06:17:00 11/01/1910/31/2022 PSA TOTAL (REFL EX TO FREE) reflex criteria COMMEN T The perce nt free PSA is perfo rmed on a refle x basis only when the total PSA is betwe en 4.0 and 10.0 ng/mL . Not Available [facility] ([facility]) [address] [facility], [place], [address], 11/01/2022 08:21:48 11/01/1911/01/2022 PSA TOTAL (REFL EX TO FREE) prostate specific Ag 2.5 NG/mL 0.0-4. 0 Eddi ECLIA metho dolog y. Accor ding to the Ameri can Urolo gical Assoc iatio n, Serum PSA shoul d decre ase and remai n at undet ectab le level s after radic al prost atect rocky. The AUA defin es bioch emica l recur rence as an initi al PSA value 0.2 ng/mL or great er follo wed by a subse quent confi rmato ry PSA value 0.2 ng/mL or great er. Value s obtai parviz with diffe rent assay metho ds or kits canno t be used inter springer eably . Resul ts canno t be inter prete d as absol felice evide nce of the prese nce or absen ce of trip cuenca se. Not Available [facility] ([facility]) [address] [facility], [place], [address], 11/01/2022 08:21:48 09/26/20 23 11/01/2022 TSH TSH 0.070 uIU/m L 0.450- 4.500 below low normal Not Available [facility] ([facility]) [address], [place], [address], 11/01/2022 08:21:49 11/28/19 22 11/25/2021 XR, lumbo sacra l spine , 2 or 3 view No observ ation record ed. [address], [address], 06/05/2023 17:01:04 12/13/19 22 11/25/2021 CT, chest , w/o contr ast No observ ation record ed. [address], [address], 05/19/2022 10:56:17 02/16/19 24 02/15/2023 NM, ventr iculo gram No observ ation record ed. [facility] [address] [place], [address], 06/05/2023 17:00:52 Result Notes None recorded. Problems Name Problem SNOMED Code Status Onset Date Resolution Date Notes Provider Name and Address Organization Details Recorded Time Backache with radiating pain 830991181 Completed 201706/21/2018 Marina Oneill MD Attn: Accounting, [address] 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, [place], [address], [facility] 2 12:20:16 Degenerat ion of lumbar intervert ebral disc 82395684 Active 2022 Marina Oneill MD Attn: Accounting, [address] [facility], [place], [place], [address] [place] [address], [place] [facility] 3 16:44:19 Chronic obstructi ve pulmonary disease 64550820 Active 2022 Marina Oneill MD Attn: Accounting, [address] [facility], [place], [place], [address] [place] [address], [place] [facility] 3 16:21:34 Hyperthyr oidism 77858812 Active 2022 Marina Oneill MD Attn: Accounting, [address] [place], [place], [address] [place] [address], [place] [facility] 3 09:20:37 Thyroid stimulati ng hormone level below reference range 976483500 Active 2023 Marina Oneill MD Attn: Accounting, [address] [facility], [place], [place], [address] [place] [address], [place] [facility] 4 15:49:12 Ischemic congestiv e cardiomyo adelaide 574881116 Active 2023 Marnia Oneill MD Attn: Accounting, [address] [place], [place], [address] [place] [address], [place] [facility] 4 16:01:41 Coronary arteriosc lerosis 94249896 Active 2023 Marina Oneill MD Attn: Accounting, [address] [place], [place], [address] [place] [address], [place] [facility] 4 16:23:45 Influenza vaccinati on declined 801930241 Active 2023 Marina Oneill MD Attn: Accounting, [address] [place], [place], [address] [place] [address], [place] [facility] 4 16:25:20 Essential hypertens ion 60955747 Active Not Available [facility] 2 21:01:52 Headache 09957768 Completed 06/21/2018 Kalin Oneill MD Attn: Accounting, [address] [place], [address], [place] [facility] 9 11:31:02 Tobacco dependenc e syndrome 31739380 Active Not Available [facility] 2 21:01:52 Gastroeso phageal reflux disease 693390749 Completed 12/04/2018 Marina Oneill MD Attn: Accounting, [address] [place], [address], [place] [facility] 9 15:13:38 Mixed anxiety and depressiv e disorder 769705718 Active Not Available [facility] 2 21:01:52 Melanocyt ic nevus 133568909 Active Not Available [facility] 2 21:01:52 Vitamin D deficienc y 24185855 Completed 201606/21/2018 Marina Oneill MD Attn: Accounting, [address] [place], [address], [place] [facility] 2 11:17:14 Prostate specific antigen above reference range 058750751 Completed 201603/03/2019 Marina Oneill MD Attn: Accounting, [address] [place], [address], [place] [facility] 0 14:58:34 Problem Notes None recorded. Medical Equipment None Reported. Allergies No known drug allergies Medications Name Sig Start Date Stop Date Status Note LastModified by Organization Details LastModified Time amoxicillin 500 mg capsule TAKE 1 CAPSULE BY MOUTH EVERY 8 HOURS FOR 7 DAYS 08/24 completed Not Available Not Available Not Available furosemide 40 mg tablet 1 BY MOUTH TWICE A DAY active Not Available Not Available No t Available Miralax 17 gram/dose oral powder 04/05 completed Not Available Not Available Not Available prednisone 10 mg tablet PLEASE SEE ATTACHED FOR DETAILED DIRECTION S 06/01 completed Not Available Not Available Not Available ipratropium 0.5 mg-albutero l 3 mg (2.5 mg base)/3 mL nebulizatio n soln Inhale 3 mL 4 times a day by nebulizat ion route for 30 days. active Not Available Not Available No t Available clindamycin HCl 300 mg capsule TAKE 1 CAPSULE BY MOUTH EVERY 8 HOURS FOR 10 DAYS. 06/01 completed Not Available Not Available Not Available trazodone 50 mg tablet PLEASE SEE ATTACHED FOR DETAILED DIRECTION S 02/13 completed Not Available Not Available Not Available lisinopril 20 mg-hydrochl orothiazide 12.5 mg tablet active Not Available Not Available Not Available azithromyci n 250 mg tablet TAKE 2 TABLETS BY MOUTH TODAY, THEN TAKE 1 TABLET DAILY FOR 4 DAYS DIRECTED 02/12 completed Not Available Not Available Not Available ibuprofen 800 mg tablet 04/05 completed Not Available Not Available Not Available tizanidine 4 mg tablet TAKE 1 TABLET BY MOUTH @ BEDTIME 02/13 completed Not Available Not Available Not Available hydrocodone 5 mg-acetamin ophen 325 mg tablet TAKE 1 TABLET BY MOUTH EVERY 6 HOURS NEEDED FOR MODERATE OR SEVERE PAIN 06/01 completed Not Available Not Available Not Available prednisone 20 mg tablet 02/13 completed Not Available Not Available Not Available sertraline 100 mg tablet TAKE 1 TABLET BY MOUTH EVERY DAY 02/13 completed Not Available Not Available Not Available penicillin V potassium 500 mg tablet 11/07 completed Not Available Not Available Not Available metronidazo le 500 mg tablet 11/07 completed Not Available Not Available Not Available clopidogrel 75 mg tablet TAKE 1 TABLET BY MOUTH EVERY DAY active Not Available Not Available No t Available amlodipine 5 mg tablet TAKE 1 TABLET BY MOUTH DAILY WITH DINNER. 02/13 completed Not Available Not Available Not Available aspirin 81 mg tablet,michael yed release TAKE 1 TABLET BY MOUTH EVERY DAY active Not Available Not Available No t Available ketorolac 10 mg tablet 09/27 completed Not Available Not Available Not Available meloxicam 7.5 mg tablet TAKE 1 TABLET BY MOUTH EVERY DAY AFTER MEALS 02/13 completed Not Available Not Available Not Available doxycycline monohydrate 100 mg capsule TAKE 1 CAPSULE BY MOUTH TWICE A DAY 06/01 completed Not Available Not Available Not Available ranitidine 300 mg capsule 11/07 completed Not Available Not Available Not Available aspirin 81 mg chewable tablet 02/13 completed Not Available Not Available Not Available ranitidine 150 mg capsule TAKE ONE CAPSULE BY MOUTH TWO TIMES A DAY NEEDED 06/21 completed Not Available Not Available Not Available ergocalcife rol (vitamin D2) 1,250 mcg (50,000 unit) capsule TAKE 1 CAPSULE BY MOUTH EVERY WEEK 11/07 completed Not Available Not Available Not Available lisinopril 10 mg-hydrochl orothiazide 12.5 mg tablet active Not Available Not Available Not Available ibuprofen 600 mg tablet 09/27 completed Not Available Not Available Not Available methylpredn isolone 4 mg tablets in a dose pack TAKE 6 TABLETS ON DAY 1 DIRECTED ON PACKAGE AND DECREASE BY 1 TAB EACH DAY FOR A TOTAL OF 6 DAYS 02/13 completed Not Available Not Available Not Available albuterol sulfate HFA 90 mcg/actuati on aerosol inhaler active Not Available Not Available Not Available sertraline 50 mg tablet TAKE 1 TABLET(S) EVERY DAY BY ORAL ROUTE. active Not Available Not Available No t Available loratadine 10 mg tablet TAKE 1 TABLET BY MOUTH EVERY DAY NEEDED 12/04 completed Not Available Not Available Not Available amoxicillin 875 mg-potassiu m clavulanate 125 mg tablet Take 1 tablet every 12 hours by oral route. 11/07 completed Not Available Not Available Not Available bupropion HCl XL 150 mg 24 hr tablet, extended release TAKE 1 TABLET BY MOUTH EVERY DAY 02/13 completed Not Available Not Available Not Available chlorhexidi ne gluconate 0.12 % mouthwash SWISH AND SPIT 15ML TWICE DAILY 02/13 completed Not Available Not Available Not Available Symbicort 160 mcg-4.5 mcg/actuati on HFA aerosol inhaler INHALE 2 PUFFS TWICE A DAY 02/13 completed Not Available Not Available Not Available cholecalcif laila (vitamin D3) 50 mcg (2,000 unit) tablet Take 1 tablet every day by oral route. 04/25 completed Not Available Not Available Not Available Jardiance 10 mg tablet TAKE 1 TABLET BY MOUTH EVERY DAY active Not Available Not Available No t Available Incruse Ellipta 62.5 mcg/actuati on powder for inhalation Inhale 1 puff(s) every day by inhalatio n route for 30 days. 2023 active Not Available Not Available Not Avai lable Entresto 24 mg-26 mg tablet TAKE 1 TABLET BY MOUTH TWICE A DAY active Not Available Not Available No t Available Vitals Date Recorded Body height Body mass index (BMI) Body weight Body temperature Oxygen saturation Oxygen saturation in Arterial blood by Pulse oximetry Heart rate Respiratory rate Systolic blood pressure Diastolic blood pressure Provider Name and Address Organization Details Last Updated DateTime 4 167.64 cm 21.6 kg/m2 50895.0 2 g 97.4 [degF] 87 % 87 % 94 /min 18 /min 104 mm[Hg] 71 mm[Hg] Yajaira Kline [place] - [facility] 4 15:43:07 Date Recorded Body height Body mass index (BMI) Body weight Body temperature Oxygen saturation Oxygen saturation in Arterial blood by Pulse oximetry Respiratory rate Heart rate Systolic blood pressure Diastolic blood pressure Provider Name and Address Organization Details Last Updated DateTime 3 167.64 cm 21.4 kg/m2 79174.3 5 g 96.8 [degF] 92 % 92 % 18 /min 82 /min 133 mm[Hg] 78 mm[Hg] Yajaira Kline [place] - [facility] 3 16:04:33 Date Recorded Body height Body mass index (BMI) Body weight Body temperature Heart rate Oxygen saturation Oxygen saturation in Arterial blood by Pulse oximetry Respiratory rate Systolic blood pressure Diastolic blood pressure Provider Name and Address Organization Details Last Updated DateTime 2 167.64 cm 22 kg/m2 14947.9 9 g 97.5 [degF] 85 /min 96 % 96 % 16 /min 124 mm[Hg] 80 mm[Hg] Yajaira Kline [place] - [facility] 2 15:32:33 Date Recorded Body height Body mass index (BMI) Body weight Respiratory rate Body temperature Heart rate Oxygen saturation Oxygen saturation in Arterial blood by Pulse oximetry Systolic blood pressure Diastolic blood pressure Provider Name and Address Organization Details Last Updated DateTime 3 167.64 cm 21.3 kg/m2 53372.5 5 g 18 /min 97.7 [degF] 98 /min 90 % 90 % 116 mm[Hg] 66 mm[Hg] Yajaira Kline [place] - [facility] 3 16:05:20 Date Recorded Body height Body mass index (BMI) Body weight Respiratory rate Body temperature Heart rate Oxygen saturation Oxygen saturation in Arterial blood by Pulse oximetry Systolic blood pressure Diastolic blood pressure Provider Name and Address Organization Details Last Updated DateTime 2 167.64 cm 20.7 kg/m2 83200.6 2 g 18 /min 97.4 [degF] 64 /min 92 % 92 % 122 mm[Hg] 66 mm[Hg] Yajaira Kline MA [facility] 2 14:50:29 Social History Question Answer Notes LastModified by [employer] ion Details LastModified Time Tobacco Smoking Status Former Smoker Recently stopped Yajaira Kline MA null, [facility] 02/13/2023 15:41:18 Do You Have An Advance Directive? No Information not available 11/07/2021 Are You Blind Or Do You Have Difficulty Seeing? No Information not available 06/01/2021 What Is Your Level Of Caffeine Consumption? Occasional Information not available 11/07/2021 In The 14 Days Before Symptom Onset, Have You Had Close Contact With A Laboratory-confi rmed COVID-19 While That Case Was Ill? No Information not available 02/16/2021 In The 14 Days Before Symptom Onset, Have You Had Close Contact With A Person Who Is Under Investigation For COVID-19 While That Person Was Ill? No Information not available 02/16/2021 Have You Been To An Area Known To Be High Risk For COVID-19? No Information not available 02/16/2021 Are You Deaf Or Do You Have Serious Difficulty Hearing? Yes Hard Of Hearing Information not available 06/01/2021 Are There Any Guns Present In Your Home? Yes Information not available 02/16/2021 What Was The Date Of Your Most Recent Tobacco Screening? 02/13/2023 Information not available 02/13/2023 Do You Use Your Seat Belt Or Car Seat Routinely? Yes Information not available 02/16/2021 Do You Have Smoke And Carbon Monoxide Detectors In Your Home? Yes Information not available 02/16/2021 Do You Use Sunscreen Routinely? No Information not available 02/16/2021 Has Tobacco Cessation Counseling Been Provided? Yes ssuthan Information not available 06/21/2018 On What Date Was Tobacco Cessation Counseling Provided? 02/13/2023 Information not available 02/13/2023 Sex: Male Functional Status Question Answer Note LastModified by Organizat ion Details LastModified Time Do you use any illicit or recreational drugs? Yes weed Information not available 02/16/2021 Do you or have you ever used any other forms of tobacco or nicotine? No Information not available 11/07/2021 What is your level of alcohol consumption? Occasional Information not available 11/07/2021 Are you able to care for yourself? Yes Information n ot available 06/01/2021 Mental Status Question Answer Note LastModified by Organization D etails LastModified Time Do you feel stressed (tense, restless, nervous, or anxious, or unable to sleep at night)? [id number] Information not available 02/16/2021 Family History Relationship Description Onset Age of this Age Resolved Age Notes LastModified by Organization Details LastModified Time Mother Malignant neoplastic disease unknow n etiolo gy ssuthan Not available 10/07/2015 13:13:28 Medical History Condition Response Coronary Artery Disease N Other N High Blood Pressure N Atrial Fibrillation N Kidney or Bladder Problems N Thyroid Problems N GI Problems N Depression Y COPD N Blood Clots N Skin Problems N Anemia N Heart Attack (ID) N Anxiety Disorder Y Diabetes N Muscle, Joint, or Bone Problems Y Seizures/Epilepsy N Acid Reflux (GERD) Y Cancer N Stroke N Asthma N Allergies N High Cholesterol N Hepatitis N Liver Disease N Headaches Y Osteoporosis N Heart Failure N Immunizations Vaccine Type Date Status Note Provider Nam e and Address Organization Details Recorded Time Influenza, high-dose, trivalent, PF 7 completed Not Available [facility] 02/22/2019 02:34:21 Pneumococcal conjugate PCV 13 7 completed Not Available [facility] 02/22/2019 02:34:19 Influenza, high-dose, trivalent, PF 9 completed Not Available [facility] 02/22/2019 02:45:26 COVID-19, mRNA, LNP-S, PF, 100 mcg/0.5mL dose or 50 mcg/0.25mL dose 1 completed Katlyn Butler LPN [place], [place] - [facility] 06/24/2020 14:06:23 COVID-19, mRNA, LNP-S, PF, 100 mcg/0.5mL dose or 50 mcg/0.25mL dose 1 completed Brunilda Unger [place], [place] [facility] 07/23/2020 16:36:53 Influenza, high-dose, quadrivalent, PF 2 completed Yajaira Kline PARMJIT [place], [place] [facility] 02/17/2021 10:56:02 pneumococcal polysaccharide PPV23 2 completed Yajaira Kline [place], [place] [facility] 06/02/2021 11:43:30 Influenza, high-dose, quadrivalent, PF 2 completed Yajaira Kline [place], [place] [facility] 11/08/2021 14:41:18 Past Encounters Encounter ID Performer Location Encounter Start Date Encounter Closed Date Diagnosis/Indication Diagnosis SNOMED-CT Code Diagnosis ICD10 Code Diagnosis Note [id number] MD Haritha Cosme ([facility]) [address] [place] [address] 06/15/2014 11:13:27 06/15/2014 12:20:45 Essential hypertension 78414123 Elevated, new onset. Empiricall y start on lisinopril Hctz. Low salt diet. Recheck BP in 1-2 weeks. Headache 84611057 Second noreen to # 1 above. will f/u History of depression 210060899 With agitated nature and anxious. will refer to Psychiatri st as requested. Empiricall y try sertraline Pt aware if weird dream/suic idal thoughts to stop and call the office. refer to psychiothe rapy as well. Tobacco de pendence syndrome 16332094 Recommend to quit smoking at the earliest. [id number] MD Haritha Cosme ([facility]) [address] [place] [address] 09/23/2014 15:08:02 09/23/2014 15:35:27 Essential hypertension 28359444 controlled . Ct same with low salt diet. History of depression 224220855 With agitated nature and anxious. Already referred to Psychiatri st as requested. Empiricall y try sertraline - helping somewhat. Pt aware if weird dream/suic idal thoughts to stop and call the office. Pt did not connect with the Psychiatri st yet Trazodone at bedtime. Tobacco de pendence syndrome 67501869 Recommend to quit smoking at the earliest. Health hallie ntenance alteration 21581991 Screening colonoscop y. PSA with next draw. [id number] MD Haritha Cosme ([facility]) [address] [place] [address] 02/18/2015 12:07:12 02/18/2015 13:12:47 Essential hypertension 42292239 I10 controlled . Ct same with low salt diet. History of depression 16 7717715 Z86.59 Yet to see Psychiatri st. Ct same. Gastroesop hageal reflux disease 545157552 K21.9 Recommend to cutback on caffeine/c offee 7Up, spicy stuff. Ranitidine as prescribed Normal weight 42920543 Z 68.21 Recommend to maintain healthy weight with diet control and exercise. Tobacco de pendence syndrome 49114451 F17.290 Recommend to quit smoking at the earliest. Pt rolls his own tobacco! [id number] MD Haritha Cosme ([facility]am [facility]) [address] [place] [address] 10/07/2015 11:56:07 10/07/2015 13:31:07 Essential hypertension 04652126 I10 Controlled . Ct same with low salt diet. Gastroesop hageal reflux disease 204181992 K21.9 Recommend to cutback on caffeine/c offee 7Up, spicy stuff. Ranitidine as prescribed Tobacco de pendence syndrome 08035432 F17.290 Recommend to quit smoking at the earliest. Pt rolls his own tobacco! Mixed anxi ety and depressive disorder 205427273 F41.8 Increase sertraline to 100mg daily. Pt has appt with his Psychiatri st by Jan 2016 Screening for malignant neoplasm of colon 112735129 Z12.11 Melanocytic nevus 208922 001 D22.9 Upper chest area, Refer for excision biopsy [id number] MD Haritha Cosme ([facility]) [address] [place] [address] 04/05/2016 09:53:01 04/05/2016 10:34:19 Essential hypertension 47735408 I10 controlled . Ct same with low salt diet. Mixed anxi ety and depressive disorder 025527861 F41.8 Symptomati nadia feels lot better.Ct all medication . deep breathing exercise as explained. Aware of medication side effects (weird dream/suic idal thoughts- to stop medication and call the office) Tobacco de pendence syndrome 27931729 F17.290 Recommend to quit smoking at the earliest. Pt rolls his own tobacco! Influenza- like symptoms 217214604 R68.89 Did not get flu shot before. > 10 days, try augmentin with better hydration, Quit smoking. labsIf getting worse go to ER./RTC in 2 wks for assessment Health hallie ntenance alteration 36241245 Z78.9 Screening colonoscop y. PSA with next draw. [id number] MD Haritha Cosme ([facility]) [address] [place] [address] 11/07/2016 10:47:36 11/08/2016 13:09:24 Essential hypertension 22068771 I10 El;evated, ran out medication for a wk, refilled, recheck in a wk. low salt diet. Gastroesop hageal reflux disease 373644053 K21.9 Recommend to cutback on caffeine/c offee 7Up, spicy stuff. Ranitidine as prescribed Mixed anxi ety and depressive disorder 865766694 F41.8 Symptomati nadia feels lot better.Ct all medication . deep breathing exercise as explained. Aware of medication side effects (weird dream/suic idal thoughts- to stop medication and call the office) Tobacco de pendence syndrome 83755565 F17.200 Recommend to quit smoking at the earliest.- rolls himself Needs infl uenza immunization 087962104 Z23 No h/o GB, issue with egg allergy Administra tion of pneumococcal vaccine 23153937 Z23 Screening for malignant neoplasm of colon 893888756 Z12.11 Refuses colonoscop y Prostate s pecific antigen above reference range 041482159 R97.20 Was 13.7 in April 2016, Yet to see Urologist as referred before, will refer again [id number] MD Haritha Cosme ([facility]) [address] [place] [address] 05/14/2017 10:56:48 05/14/2017 14:32:05 Essential hypertension 19277209 I10 Controlled [address] same with low salt diet Gastroesop hageal reflux disease 962913067 K21.9 Recommend to cutback on caffeine/c offee 7-Up, spicy stuff. Ranitidine as prescribed Mixed anxi ety and depressive disorder 876850967 F41.8 Symptomati nadia feels lot better.Ct all medication . deep breathing exercise as explained. Aware of medication side effects (weird dream/suic idal thoughts- to stop medication and call the office) Prostate s pecific antigen above reference range 437872977 R97.20 Was 13.7 in April 2016, Yet to see Urologist as referred before, will refer again Tobacco de pendence syndrome 77974166 F17.200 Recommend to quit smoking at the earliest.- rolls himself Adult heal th examination 882715596 Z00.00 Baseline labs Screening for malignant neoplasm of colon 246171828 Z12.11 Agree to do now! [id number] MD Haritha Cosme [address] IM [address] [facility] [address] [place] [address] 09/27/2017 11:49:19 10/01/2017 14:54:37 Essential hypertension 53517160 I10 Mildly elevated, ran out medication , refill sent, recheck BP in 1 wk.low salt diet Gastroesop hageal reflux disease 656973417 K21.9 Recommend to cutback on caffeine/c offee 7-Up, spicy stuff. Ranitidine as prescribed Mixed anxi ety and depressive disorder 529552715 F41.8 Symptomati nadia feels lot better.Ct all medication . deep breathing exercise as explained. Aware of medication side effects (weird dream/suic idal thoughts- to stop medication and call the office) Prostate s pecific antigen above reference range 022661021 R97.20 Was 13.7 in April 2016, Yet to see Urologist as referred before, will refer againRamesh harden 09/27/17Do labs Tobacco de pendence syndrome 38376402 F17.200 Recommend to quit smoking at the earliest.- rolls himself Renewal of prescription 647356535 Z76.0 Backache w ith radiating pain 128080891 M54.9 Radiation to L/lower leg s/p twisting back after lifting a washer himself about 2 months agoX ray. Stretching exercise. [id number] MD Haritha Cosme 14 IM [address] [facility] [address] [place] [address] 06/21/2018 10:51:43 06/24/2018 09:26:31 Essential hypertension 71117061 I10 elevated, add amlodipine 5mg along with lisinopril Hctz20/12. 5 daily, Recheck BP in 2 wks f/u in 6 wks with labs,.low salt diet. Mixed anxi ety and depressive disorder 192895547 F41.8 Symptomati nadia feels lot better.Ct all medication . deep breathing exercise as explained. Aware of medication side effects (weird dream/suic idal thoughts- to stop medication and call the office) Tobacco de pendence syndrome 22113011 F17.200 Recommend to quit smoking at the earliest.- rolls himself Acute uppe r respiratory infection 52504175 J06.9 Hydrate well. Use humidifier Take medication as prescribed , If getting worse come in / go to ER Renewal of prescription 944009649 Z76.0 Vitamin D deficiency 347 88051 E55.9 check level Adult heal th examination 844802064 Z00.00 Baseline labs Impacted c erumen of bilateral ears 9130174982 856835 H61.23 Will flush it [id number] MD Haritha Cosme 14 IM [address] [facility] [address] [place] [address] 12/04/2018 14:56:26 12/05/2018 10:41:02 Essential hypertension 47541214 I10 [address]rolled [address] same with low salt diet Mixed anxi ety and depressive disorder 150378614 F41.8 Symptomati nadia feels lot better.Ct all medication . deep breathing exercise as explained. Aware of medication side effects (weird dream/suic idal thoughts- to stop medication and call the office) Tobacco de pendence syndrome 38165283 F17.200 Recommend to quit smoking at the earliest.- rolls himself Needs infl uenza immunization 818649795 Z23 No h/o GBS, issue with egg allergy Administra tion of pneumococcal vaccine 95793332 Z23 No 23 available Long-term drug therapy 299838613 Z79.899 Baseline labs Acute gingivitis 3114044 5 K05.00 Recommende d oral care. Stop smoking. F/u with your dentist Renewal of prescription 026205922 Z76.0 [id number] MD Haritha Cosme 14 IM [address] [facility] [address] [place] [address] 03/03/2019 14:42:00 03/04/2019 12:35:54 Essential hypertension 99328015 I10 [address]rolled [address] same with low salt diet Tobacco de pendence syndrome 98198200 F17.200 Recommend to quit smoking at the earliest.- rolls himself Mixed anxi ety and depressive disorder 546137684 F41.8 Symptomati nadia feels lot better.Ct all medication . deep breathing exercise as explained. Aware of medication side effects (weird dream/suic idal thoughts- to stop medication and call the office) Screening for malignant neoplasm of colon 477718800 Z12.11 Do at least stool test Thyroid st imulating hormone level below reference range 367185490 R94.6 Will repeat Acute uppe r respiratory infection 66536191 J06.9 Hydrate well. Use humidifier Take medication as prescribed , If getting worse come in / go to ER [id number] MD Haritha Cosme 14 IM [address] [facility] [place] [address] 06/02/2019 09:14:35 06/03/2019 09:44:02 Essential hypertension 14132601 I10 Clinically feels well.Ct same with low salt diet Mixed anxi ety and depressive disorder 693344924 F41.8 Symptomati nadia feels lot better.Ct all medication . deep breathing exercise as explained. Aware of medication side effects (weird dream/suic idal thoughts- to stop medication and call the office) Subclinica l hyperthyroidism 570282568 E05.90 Will refer to Endo for further Mx ect. 0Yet to connect, recommend to call and f/u Tobacco de pendence syndrome 20140462 F17.200 Recommend to quit smoking at the earliest.- rolls himself Long-term drug therapy 817967384 Z79.899 Baseline labs [id number] MD Haritha Cosme 14 IM [address] [facility] [place] [address] 02/10/2020 08:46:41 02/11/2020 11:53:06 Essential hypertension 44444413 I10 Clinically feels well.Ct same with low salt diet Mixed anxi ety and depressive disorder 980298395 F41.8 Symptomati nadia feels lot better.Ct all medication . deep breathing exercise as explained. Aware of medication side effects (weird dream/suic idal thoughts- to stop medication and call the office) Subclinica l hyperthyroidism 749344171 E05.90 Will refer to Endo for further Mx ect. 0Yet to connect, recommend to call and f/u Tobacco de pendence syndrome 07412874 F17.200 Recommend to quit smoking at the earliest.- rolls himself (1.5 PPD) Long-term drug therapy 395992116 Z79.899 Baseline labs Renewal of prescription 134245020 Z76.0 Acute gingivitis 1057834 5 K05.00 Recommende d oral care. Stop smoking. F/u with your dentisMartha/sammi olivas is hurting lately [id number] MD Haritha Gamez [address] [facility] [place] [address] 06/24/2020 11:18:53 06/25/2020 17:54:56 Administration of SARS-CoV-2 antigen vaccine 371015119 Z23 [id number] MD Haritha Gamez [address] [facility] [place] [address] 07/23/2020 15:54:38 07/26/2020 17:02:17 Administration of SARS-CoV-2 antigen vaccine 711286206 Z23 [id number] MD Haritha Cosme [address] [facility] [place] [address] 02/16/2021 14:50:57 02/17/2021 17:37:31 Essential hypertension 29062291 I10 Controlled . Ct same with low salt diet Subclinica l hyperthyroidism 048276588 E05.90 Will refer to Endo for further Mx ect. 0Yet to connect, recommend to call and f/02/16/21 Will check labs do what is needed Mixed anxi ety and depressive disorder 266499416 F41.8 Symptomati nadia feels lot better.Ct all medication . deep breathing exercise as explained. Aware of medication side effects (weird dream/suic idal thoughts- to stop medication and call the office)02/05 03/29not taking medication , feels stressed out due to eviction notice, Agree to be back on the medication ,, Aware of SEs Tobacco de pendence syndrome 53038917 F17.200 Recommend to quit smoking at the earliest.- rolls himself (1.5 PPD) Administra tion of influenza vaccine 83380309 Z23 Long-term drug therapy 344369390 Z79.899 Baseline labs Screening for malignant neoplasm of colon 204601978 Z12.11 Renewal of prescription 781906852 Z76.0 Mass of skin 583087129 R 22.9 r/axilla also discolored lesion L/root of neck anterior- refer for excision? epidermoid cyst Acute gingivitis 4148325 5 K05.00 Recommende d oral care. Stop smoking. F/u with your dentistL/sammi brendon is hurting lately [id number] MD Haritha Cosme 14 IM [address] [facility] [address] [place] [address] 06/01/2021 15:17:54 06/02/2021 14:17:23 Essential hypertension 54520611 I10 [address] same with low salt diet Mixed anxi ety and depressive disorder 745497809 F41.8 Symptomati nadia feels lot better.Ct all medication . deep breathing exercise as explained. Aware of medication side effects (weird dream/suic idal thoughts- to stop medication and call the office)02/05 03/29not taking medication , feels stressed out due to eviction notice, Agree to be back on the medication ,, Aware of SEs06/01/21 Prefer alternativ e and not on sertraline for awhile- try buproprion EOD for 1 wk then daily- helps to quit smoking tooRefer to psych also counselor Tobacco de pendence syndrome 00407153 F17.200 Recommend to quit smoking at the earliest.- rolls himself (1.5 PPD) Screening for malignant neoplasm of colon 662887729 Z12.11 Vitamin D deficiency 347 92455 E55.9 Take daily D3- buy/hop picker Serum thyr oid stimulating hormone level outside reference range 370528274 R79.89 Repeat the test Imaging of lung abnormal 109925262 R91.8 CXR per [facility] on 05/25/21 - LLL1.6 cm ? mass Wheezing symptom 5298336 08 R06.2 stop smokingUse the inhaler Administra tion of pneumococcal vaccine 43446383 Z23 No 23 available [id number] MD Haritha Cosme 14 IM [address] [facility] [place] [address] 11/07/2021 14:42:06 11/22/2021 14:54:21 Mixed anxiety and depressive disorder 159653241 F41.8 Clinically feels better Essential hypertension 07575515 I10 [address]rolled [address] same with low salt diet Tobacco de pendence syndrome 03408401 F17.200 Recommend to quit smoking at the earliest.- rolls himself upto 2 PPD Screening for malignant neoplasm of colon 154421626 Z12.11 Subclinica l hyperthyroidism 641374848 E05.90 TSH still low , Check free t3 & T3 & refer to Endo/04/04 2still abnormal check T3 level also refer to Endo 2Labs againNC letter sent!Repeat lab, also refer to Endo Imaging of lung abnormal 535286170 R91.8 CXR per [facility] on 05/25/21 - LLL1.6 cm ? massPrint out given, never did it Long-term drug therapy 224604669 Z79.899 Baseline labs Low back pain 644896062 M54.50 R/sided., referred to outer R/side to kneestop smokingstr etching exercise Mass of skin of neck 655 0110876 5162227 R22.1 L/anterior root of neck- refer to surgeon for excision Mass of axilla 790578995 R22.2 R/axilla area- referred to surgeon in Feb yet to connect, growing Administra tion of influenza vaccine 85905081 Z23 no issue before [id number] MD Haritha Csome 14 IM [address] [facility] [place] [address] 04/25/2022 15:40:25 05/02/2022 16:11:42 Mixed anxiety and depressive disorder 122336879 F41.8 Clinically feels better Essential hypertension 79786811 I10 Controlled [address] same with low salt diet Subclinica l hyperthyroidism 196538174 E05.90 TSH still low , Has been referred to Endo several time yet to schedule appt- print out given Multiple n odules of lung 078554814 R91.8 B/l pul nodules per CT < 6 mm- to repeat in 1 yr from Nov 2021 Tobacco de pendence syndrome 66403231 F17.200 Recommend to quit smoking at the earliest.- rolls himself upto 2 PPD Degenerati on of lumbar intervertebral disc 28486162 M51.36 X ray: Multilevel lumbar DJD & facet joint OAReferred for PT Screening for malignant neoplasm of colon 673772706 Z12.11 Poor oral hygiene 220628 009 R46.89 Oral hygiene with flossing once and brushing twice/Brook void smokingsee the dentist soon Chronic ob structive pulmonary disease 20638285 J44.9 Use inhaler -symbicort upto 2 puff BIDTo stop smoking sooner [id number] MD Haritha Cosme 14 IM [address] [facility] [place] [address] 10/31/2022 15:51:14 11/01/2022 14:19:32 Chronic obstructive pulmonary disease 00076837 J44.9 Use inhaler -symbicort upto 2 puff BIDTo stop smoking soonerExac erbation recentlyAd d Incruse Multiple n odules of lung 429633965 R91.8 B/l pul nodules per CT < 6 mm- to repeat in 1 yr from Nov 2021 Essential hypertension 80381269 I10 Controlled . Ct same with low salt diet Tobacco de pendence syndrome 66288248 F17.200 Recommend to quit smoking at the earliest.- rolls himself upto 2 PPD-did stop last 4 days-never going to pick it up...! Mixed anxi ety and depressive disorder 339945183 F41.8 Clinically feels better Screening for malignant neoplasm of colon 979796589 Z12.11 Cough 23830054 R05.9 ImprovingW ants something for cough Edema of l ower extremity 221895330 R60.0 Trace b/l- somewhat worse after recent URTIWill f/u in 2 wk to consider continuati on of amlodipine ect Long-term drug therapy 983071306 Z79.899 Baseline labs [id number] MD Haritha Cosme 14 IM [address] [facility] [address] [place] [address] 02/13/2023 15:07:20 02/15/2023 08:31:39 Coronary arteriosclerosis 98916664 I25.10 Cath: 2 vessel severe disease (Mid RCA & 2nd obtuse marginal) EF 20% on lifevest- medical Mx Acute syst olic heart failure 121573512 I50.21 Probably due to # 1 aboveCath: 2 vessel severe disease (Mid RCA & 2nd obtuse marginal) EF 20% on lifevest and started on plavix 75, ASA 81, Jardiance 10 and entresto + oxygen 2L/min @ nightAlso furosemide 40mg BID- none lately per the CardioUnde r care by Chronic ob structive pulmonary disease 25260572 J44.9 Use inhaler -symbicort upto 2 puff BIDTo stop smoking soonerExac erbation recentlyAd d Incruse02/13Daughte r accompanie d with the pt insist needing neb rx- ONLY helpsPulmo appt in April- aware referred 4 times in the pastInsist ing oxygen - not done test its need ectNot smoking lately! Mixed anxi ety and depressive disorder 986536490 F41.8 Clinically feels OK Essential hypertension 62892557 I10 [address]rolled [address] same with low salt diet Tobacco de pendence syndrome 33745628 F17.200 Recommend to quit smoking at the earliest.- rolls himself upto 2 PPD-did stop last 4 days-never going to pick it up...!Did quit smoking since last hospital stay Thyroid st imulating hormone level below reference range 095008887 R94.6 Repeated tests low , refer endo Ischemic c ongestive cardiomyopathy 752374315 I25.5 EF was 15-20% on lifevest per Dr.GondiMU RASCON in 90 days to decide further Mx -appt late Feb Influenza vaccination declined 518893472 Z28.21 Health Concerns Section Related Observation LastModified by Organization Detai ls LastModified Time None Recorded Concern Status LastModified by Organization Details LastModified Time None Recorded Advance Directives Directive N: Payers Encounter Date Sequence Insurance Name Policy Number Policy [place] Covered Member ID [place] Member ID Guarantor Name 06/01/2021 1 [facility] ON OR AFTER 08/05/20 (MEDICAID REPLACEMENT - HMO) Neno Louis [id number] Neno Louis 11/07/2021 1 [facility] ON OR AFTER 08/05/20 (MEDICAID REPLACEMENT - HMO) Neno Louis [id number] Neno Louis 04/25/2022 1 [facility] ON OR AFTER 08/05/20 (MEDICAID REPLACEMENT - HMO) Neno Louis [id number] Neno Louis 10/31/2022 1 [facility] ON OR AFTER 08/05/20 (MEDICAID REPLACEMENT - HMO) Neno Louis [id number] Neno Louis 02/13/2023 1 [facility] ON OR AFTER 08/05/20 (MEDICAID REPLACEMENT - HMO) Neno Louis [id number] Neno Louis Notes Date Note Type Note Provider Name and Address Organization Details Recorded Time 06/02/19 22 text/htm l Anxiety/DepressionReported bypatient.Quality:symptoms worse during the day Severity:denies suicidal ideations; able to maintain relationships Duration:stablizing Context:no major life stressors Associated Symptoms:maintaining functionality;depression;anxi ety with muscle tensionNotes:02/16/21not taking themrecent been getting eviction notice hence more stressed out agree to take medication06/01/21Sertraline not helping prefer alternativeGeneric HPI TemplateReported bypatient.Notes:Having issue with gum, had issue now l/lower molar area discomfort, 'bad teeth' it seemsrecommend to quit smoking and avoid soda,. Also lump in R/axilla area 3cm growing also another discolored on L/root of neck anterior06/01/21Yet to see the surgeon for the above, print out given to call and schedule appt Pt also was seen at [facility] for cough w/u with CXR shows 1.6 cm L/LL nodule, recommends CT w/oHypertension F/UReported bypatient.Associated Symptoms:no dizziness; no lightheadedness Lifestyle:regular exercise; limiting/avoiding salt Medications:taking medications as directed; no side effects from medication Marina Oneill MD Attn: [address] [place], [address], [facility] 06/01/2021 16:26:27 11/08/19 22 text/htm l Anxiety/DepressionReported bypatient.Quality:symptoms improved Severity:denies suicidal ideations; able to maintain relationships Duration:stablizing Context:no major life stressors Associated Symptoms:maintaining functionality;depression;anxi ety with muscle tensionGeneric HPI TemplateReported bypatient.Notes:Having issue with gum, had issue now l/lower molar area discomfort, 'bad teeth' it seemsrecommend to quit smoking and avoid soda,. Also lump in R/axilla area 3cm growing also another discolored on L/root of neck anterior06/01/21Yet to see the surgeon for the above, print out given to call and schedule appt Pt also was seen at [facility] for cough w/u with CXR shows 1.6 cm L/LL nodule, recommends CT w/o1Print out also given last visitR/axilla mass growing per the ptHypertension F/UReported bypatient.Associated Symptoms:no dizziness; no lightheadedness Lifestyle:regular exercise; limiting/avoiding salt Medications:taking medications as directed; no side effects from medication Marina Oneill MD Attn: Accounting[address] [facility], [place], [address], [facility] 11/07/2021 16:24:49 04/26/19 23 text/htm l Anxiety/DepressionReported bypatient.Quality:symptoms improved Severity:denies suicidal ideations; able to maintain relationships Duration:stablizing Context:no major life stressors Associated Symptoms:maintaining functionality;depression;anxi ety with muscle tensionCOPDReported bypatient.Onset/Timing:interm ittent Associated Symptoms:no snoringGeneric HPI TemplateReported bypatient.Notes:Having issue with gum, had issue now l/lower molar area discomfort, 'bad teeth' it seemsrecommend to quit smoking and avoid soda,. Also lump in R/axilla area 3cm growing also another discolored on L/root of neck anterior06/01/21Yet to see the surgeon for the above, print out given to call and schedule appt Pt also was seen at [facility] for cough w/u with CXR shows 1.6 cm L/LL nodule, recommends CT w/o1Print out also given last visitR/axilla mass growing per the pt04/25/22Yet to see the surgeon, also a nodule root of neck too-discoloredAlso wants a letter to prove his idenmtity to get social security card then to appy to get ID to apply for [facility] home.Hypertension F/UReported bypatient.Associated Symptoms:no dizziness; no lightheadedness Lifestyle:regular exercise; limiting/avoiding salt Medications:taking medications as directed; no side effects from medication Marina Oneill MD Attn: Accounting,[address] [facility], [place], [address], [facility] 04/25/2022 21:36:41 11/01/19 23 text/htm l Anxiety/DepressionReported bypatient.Quality:symptoms improved Severity:denies suicidal ideations; able to maintain relationships Duration:stablizing Context:no major life stressors Associated Symptoms:maintaining functionality;anxiety with muscle tensionCOPDReported bypatient.Onset/Timing:interm ittent Associated Symptoms:no snoringGeneric HPI TemplateReported bypatient.Notes:Having issue with gum, had issue now l/lower molar area discomfort, 'bad teeth' it seemsrecommend to quit smoking and avoid soda,. Also lump in R/axilla area 3cm growing also another discolored on L/root of neck anterior06/01/21Yet to see the surgeon for the above, print out given to call and schedule appt Pt also was seen at [facility] for cough w/u with CXR shows 1.6 cm L/LL nodule, recommends CT w/o1Print out also given last visitR/axilla mass growing per the pt04/25/22Yet to see the surgeon, also a nodule root of neck too-discoloredAlso wants a letter to prove his identity to get social security card then to apply to get ID to apply for [employer] home.10/31/22Has URTI -been rxed with Z pack and prednisone, improvingDid stop smokingCovid [facility] referred beforec/o foot swelling - 2-3 days, no calf pain long travelHypertension F/UReported bypatient.Associated Symptoms:no dizziness; no lightheadedness Lifestyle:regular exercise; limiting/avoiding salt Medications:taking medications as directed; no side effects from medication Marina Oneill MD Attn: Accounting,[address] [facility], [place], [address], [facility] 10/31/2022 16:43:45 02/13/19 24 text/htm l Anxiety/DepressionReported bypatient.Quality:symptoms improved Severity:denies suicidal ideations; able to maintain relationships Duration:stablizing Context:no major life stressors Associated Symptoms:maintaining functionalityCOPDReported bypatient.Onset/Timing:interm ittent Associated Symptoms:no snoringNotes:Daughter argues that pt only benefits with neb Rx -insist needing it-she doesn't want to hear that pt was referred to pulmo several times before and didn't make itGeneric HPI TemplateReported bypatient.Notes:02/13/22Admitte d to [facility] 11/06-11/08/22 with SOB and b/l leg swellingDiagnosed with acute systolic heart failureW/u shows Pro BNP 2669 SpO 87% in RM CXR:minimal airspace opacity, TTE: EF25% with global hypokinesia elian LVCath: 2 vessel severe disease (Mid RCA & 2nd obtuse marginal) EF 20% on lifevest and started on plavix 75, ASA 81, Jardiance 10 and entresto + oxygen 2L/min @ nightAlso furosemide 40mg BIDPer , IFR (instantaneous wave free ratio) hemodynamically insignificant stenosis of LAD-staged revascularization planned with medical rxlifevest for 90 days then MUGA if EF <35% may may be getting defibHypertension F/UReported bypatient.Associated Symptoms:no dizziness; no lightheadedness Lifestyle:regular exercise; limiting/avoiding salt Medications:taking medications as directed; no side effects from medication Marina Oneill MD Attn: Accounting,[address] [facility], [place], [address], [facility] 02/14/2023 09:41:15
--- OUTSIDE RECORDS SUMMARY | 2024-07-08 14:36 | XMS_ITS | Encounter Summary ---
Author Organization [facility] Healthcare Address [address] [place] [address] Care Team Providers Care Cake Batter Mixer Name Role Phone Arabella Restrepo MD Unavailable [phone] Tereso Martínez MD Primary Care Provider Tamir Rosario MD Unavailable Rip Morgan MD Unavailable [phone] Reason for Visit * Reason Onset Date Comments Medical Question/Miscellaneous 07/07/2024 Encounter Details Date Type Department Care Team (Late st Contact Info) Description 07/07/2024 Telephone [facility] Medical Group Primary Care at [address] [address] Tereso Martínez MD [address] [place] [address] [address] [place] [address] Medical Question/Miscellaneous Social History Tobacco Use Types Packs/Day Years Used Date Smoking Tobacco: Former Cigarettes 2 60 1 966 - 10/23/2022 AUDIT-C Answer Date Recorded Q1: How often do you have a drink containing alcohol? Never 11/15/2023 Q2: How many drinks containi ng alcohol do you have on a typical day when you are drinking? Patient does not drink Q3: How often do you have si x or more drinks on one occasion? Never 11/15/2023 PHQ-2 Answer Date Recorded PHQ-2 Total Score (If total score is 3 or more points, staff should administer the PHQ-9) 0 05/29/2024 Personal Safety Answer Date Recorded Have you ever been in or are you currently in a harmful physical or emotional relationship or is someone making you feel afraid or unsafe? 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 Elba will call insurance and GI doctor Love Tinsley for confirmation Does message need to be routed? No documented in this encounter Plan of Treatment Upcoming Encounters Date Type Department Care Team (Late st Contact Info) Description 09/08/2024 9:30 AM CDT Hospital Encounter [address] [address] Love Tinsley MD [address] [place] [address] [address] [place] [address] 09/08/2024 9:30 AM CDT - 09/08/2024 10:00 AM CDT Surgery [address] [address] Love Tinsley MD [address] [place] [address] [address] [place] [address] COLONOSCOPY Scheduled Procedures Name Priority Associated Diagnoses Date/Ti me COLONOSCOPY Encounter for screening colonoscopy 09/08/2024 9:30 AM CDT documented as of this encounter Visit Diagnoses Not on filedocumented in this encounter Care Teams Cake Batter Mixer Relationship Specialty Start Date End Date Tereso Martínez MD PCP - General Family Medicine 03/22/23 Arabella Restrepo MD Consulting Physician Cardiology 11/08/22 Tamir Rosario MD [address] [place] [address] [address] [place], [place] [address], [place] [address] Consulting Physician Pulmonary Disease 03/22/23 Rip Morgan MD [address] [place] [address] [address] [place], [place] [address], [place] [address] Consulting Physician Cardiovascular Disease 03/22/23 documented as of this encounter
--- OUTSIDE RECORDS SUMMARY | 2024-07-08 14:36 | XMS_ITS | Clinical Summary ---
Author Organization [facility] Medical Office Building [address] Address [address] [place] [address] Care Team Providers Care Decision Science Analyst Name Role Phone Arabella Restrepo MD Unavailable [phone] Tereso Martínez MD Primary Care Provider Tamir Rosario MD Unavailable Rip Mogran MD Unavailable [phone] Allergies No known active allergies Medications albuterol HFA (PROVENTIL HFA,VENTOLIN HFA,PROAIR HFA) 90 mcg/actuation inhaler Inhale 2 puffs daily 1 each 11 024 Active Additional Information Patient not taking.Reported on 06/17/2024 Incruse Ellipta 62.5 mcg/actuation blister with device Active furosemide (LASIX) 40 mg tablet TAKE 1 TABLET BY MOUTH EVERY DAY 90 tablet 3 024 Active Additional Information Patient not taking.Reported on 06/17/2024 Entresto 24-26 mg tablet TAKE 1 TABLET BY MOUTH TWICE A DAY 60 tablet [address] (PROTONIX) 40 mg EC tabletIndication s:Gastroesophage al reflux disease, unspecified whether esophagitis present TAKE 1 TABLET BY MOUTH EVERY DAY 30 tablet 5 025 Active aspirin 81 mg enteric coated tablet TAKE 1 TABLET BY MOUTH EVERY DAY 30 tablet 3 025 Active budesonide-formo teroL (Symbicort) 160-4.5 mcg/actuation inhaler Inhale 2 puffs 2 (two) times a day 10.2 each 6 Active atorvastatin (LIPITOR) 20 mg tabletIndication s:Coronary artery disease of [place] artery of [place] heart with stable angina pectoris Take 1 tablet (20 mg total) by mouth daily 90 tablet 3 Active carvediloL (COREG) 3.125 mg tablet TAKE 1 TABLET BY MOUTH TWICE A DAY WITH MEALS 180 tablet 3 Active spironolactone (ALDACTONE) 25 mg tablet TAKE 1 TABLET (25 MG TOTAL) BY MOUTH DAILY. 90 tablet 3 025 2025 Active clopidogreL (PLAVIX) 75 mg tablet TAKE 1 TABLET BY MOUTH EVERY DAY 30 tablet 11 Active cholecalciferol (VITAMIN D-3) 5,000 unit tabletIndication s:Vitamin D Deficiency Take 1 tablet (5,000 Units total) by mouth daily 90 tablet 3 Active Jardiance 10 mg tablet TAKE 1 TABLET BY MOUTH EVERY DAY 90 tablet 1 Active calcium carbonate (TUMS) 750 mg (320 mg elemental) tablet,chewable Take 320 mg by mouth as needed Active ipratropium-albu teroL (DUO-NEB) 0.5-2.5 mg/3 mL nebulizer solutionIndicati ons:Chronic Obstructive Pulmonary Disease with Bronchospasms Take 3 mL by nebulization 4 (four) times a day as needed for wheezing or shortness of breath 90 mL 11 025 2025 Active ipratropium-albu teroL (DUO-NEB) 0.5-2.5 mg/3 mL nebulizer solutionIndicati ons:Chronic Obstructive Pulmonary Disease with Bronchospasms Take 3 mL by nebulization 4 (four) times a day as needed for wheezing or shortness of breath 90 mL 024 2024 Discontinued(R eorder) clopidogreL (PLAVIX) 75 mg tablet Take 1 tablet (75 mg total) by mouth daily 30 tablet 11 024 2024 Discontinued Jardiance 10 mg tablet TAKE 1 TABLET BY MOUTH EVERY DAY 90 tablet 1 024 2024 Discontinued cholecalciferol (VITAMIN D-3) 5,000 unit tabletIndication s:Vitamin D Deficiency Take 1 tablet (5,000 Units total) by mouth daily 90 tablet 3 025 2024 Discontinued(R eorder) Active Problems Problem Noted Date Diagnosed Date Hypersomnolence 07/04/2024 Melanocytic nevus 12/13/2023 Preventative health care 11/15/2023 Assessment & Plan (12/02/2023 9:12 PM CDT): - New or chronic worsening conditions: epidermoid cyst and seborrheic keratosis - Mental health: no significant psychiatric/mental health conditions affecting her day to day functioning - Dental health: Recommend regular dental care and cleaning. Discussed importance of regular tooth brushing, flossing, and dental visits. - Nutrition: Recommend moderation in sodium/caffeine intake, saturated fat and cholesterol, caloric balance, sufficient intake of fresh fruits, vegetables - Exercise: Recommend to exercise at least 30 minutes moderate to vigorous exercise most days of the week. (minimum 150 minutes weekly) - Immunizations: Age and sex appropriate immunizations reviewed and offered - Prostate cancer screening: Up to date - Colon cancer screening: Recommended, past due, colonoscopy scheduled for 02/2024 - Lung cancer screening: Up to date Lab Results Component Value Date PSA 3.47 03/22/2023 SK (seborrheic keratosis) 11/15/2023 Assessment & Plan (12/02/2023 9:13 PM CDT): - new diagnosis, discussed etiology and benign nature - location over anterior neck - if any irritation, change in size, color, shape, recommend re-evaluation Sebaceous cyst of right axilla 11/15/2023 Overview (11/15/2023): new diagnosis, noted over right axilla, hard, with central dimple, non-tender, 35 mm x 35 mm in size, recommend plastic surgery for removal, referral placed Gastroesophageal reflux disease 09/23/2023 Assessment & Plan (05/29/2024 4:58 PM CDT): - chronic condition, better controlled with intermittent symptoms - reports ongoing regurgitation, nausea and burning sensation - no longer using Pepto-Bismol and begin soda which he used to - currently on pantoprazole DR 40 mg daily The current medical regimen is effective; continue present plan and medications. Assessment & Plan (11/15/2023 2:18 PM CDT): - chronic condition, better controlled - reports ongoing regurgitation, nausea and burning sensation - no longer using Pepto-Bismol and begin soda which he used to - switched to pantoprazole DR 40 mg daily on last visit with good result - continue current management Assessment & Plan (09/23/2023 11:52 PM CDT): - chronic condition, worse - reports ongoing regurgitation, nausea and burning sensation - no longer using Pepto-Bismol and begin soda which he used to - switch to pantoprazole DR 40 mg daily, prescription provided Gynecomastia, male 09/23/2023 Assessment & Plan (11/15/2023 2:27 PM CDT): - recent diagnosis, reports some soreness of his nipples as well as some enlarged breast tissue - patient is currently on spironolactone through Cardiology for congestive heart failure which is likely the cause of it - explained relationship and can discuss with Tiffanie provider she desires to be taken off the medication - has not had the change to talk to his director of enterprise strategy but states plans to bring it up on upcoming appointment Assessment & Plan (09/23/2023 11:54 PM CDT): - new, reports some soreness of his nipples as well as some enlarged breast tissue - patient is currently on spironolactone through Cardiology for congestive heart failure which is likely the cause of it - explained relationship and can discuss with Tiffanie provider she desires to be taken off the medication History of anxiety 03/30/2023 Assessment & Plan (11/15/2023 2:34 PM CDT): - chronic, stable but not at goal - reports he used to be on an anxiety medication Assessment & Plan (03/30/2023 8:18 AM REHAB DIRECTOR OCCUPATIONAL THERAPIST): - chronic, stable but not at goal - reports he used to be on an anxiety medication Dilated cardiomyopathy 03/22/2023 Elevated LDL cholesterol level 03/14/2023 Overview (03/14/2023): LDL of 64 mg/dL on 07 November 2022. Not on statin. May try to get the LDL less than 50 mg/dL as per ESC criteria. Valvular heart disease 03/14/2023 Overview (03/14/2023): Mild MR/TR on echo 06 November 2022. Hypoxia 03/13/2023 Chronic systolic congestive heart failure 2023 Overview (03/14/2023): Severe LV systolic dysfunction on echo 06 November 2022. Severe LV systolic dysfunction by catheterization 07 November 2022. Severe LV systolic dysfunction by MUGA 15 February 2023. This is an ischemic cardiomyopathy. Assessment & Plan (05/29/2024 5:01 PM CDT): Chronic, stable Severe LV systolic dysfunction on echo 06 November 2022. Severe LV systolic dysfunction by catheterization 07 November 2022. Severe LV systolic dysfunction by MUGA 15 February 2023. This is an ischemic cardiomyopathy. Currently on Coreg 3.125 mg BID, Jardiance 10 mg daily, Entresto 24-26 mg BID, Aldactone 25 mg daily and lasix 40 m daily PRN only Followed and managed by Cardiology at [facility] S/p ICD (placed 02/2023) The current medical regimen is effective; continue present plan and medications. Assessment & Plan (11/15/2023 2:18 PM CDT): Chronic, stable Severe LV systolic dysfunction on echo 06 November 2022. Severe LV systolic dysfunction by catheterization 07 November 2022. Severe LV systolic dysfunction by MUGA 15 February 2023. This is an ischemic cardiomyopathy. Currently on Coreg 3.125 mg BID, Jardiance 10 mg daily, Entresto 24-26 mg BID, Aldactone 25 mg daily and lasix 40 m daily Followed and managed by Cardiology at [facility] S/p ICD (placed 02/2023) Continue current management Assessment & Plan (09/23/2023 11:56 PM CDT): Chronic, stable Severe LV systolic dysfunction on echo 06 November 2022. Severe LV systolic dysfunction by catheterization 07 November 2022. Severe LV systolic dysfunction by MUGA 15 February 2023. This is an ischemic cardiomyopathy. Currently on Coreg 3.125 mg BID, Jardiance 10 mg daily, Entresto 24-26 mg BID, Aldactone 25 mg daily and lasix 40 m daily Followed and managed by Cardiology at [facility] S/p ICD (placed 02/2023) Continue current management Assessment & Plan (05/17/2023 2:38 PM CDT): Chronic, stable Severe LV systolic dysfunction on echo 06 November 2022. Severe LV systolic dysfunction by catheterization 07 November 2022. Severe LV systolic dysfunction by MUGA 15 February 2023. This is an ischemic cardiomyopathy. Currently on Coreg 3.125 mg BID, Jardiance 10 mg daily, Entresto 24-26 mg BID, Aldactone 25 mg daily and lasix 40 m daily Followed and managed by Cardiology at [facility] S/p ICD (placed 02/2023) Continue current management Assessment & Plan (03/30/2023 8:23 AM REHAB DIRECTOR OCCUPATIONAL THERAPIST): Severe LV systolic dysfunction on echo 06 November 2022. Severe LV systolic dysfunction by catheterization 07 November 2022. Severe LV systolic dysfunction by MUGA 15 February 2023. This is an ischemic cardiomyopathy. Currently on Coreg 3.125 mg BID, Jardiance 10 mg daily, Entresto 24-26 mg BID, Aldactone 25 mg daily and lasix 40 m daily Followed and managed by Cardiology at [facility] Was on life vest but now has an ICD (paced 02/2023) Ischemic congestive cardiomyopathy 02/12/2023 Personal history of tobacco use 11/22/2022 Overview (11/15/2023): Former smoker Assessment & Plan (05/29/2024 4:58 PM CDT): Social History Tobacco Use Smoking Status Former Current packs/day: 0.00 Average packs/day: 2.0 packs/day for 60.0 years (120.0 ttl pk-yrs) Types: Cigarettes Start date: 1966 Quit date: 10/23/2022 Years since quittin.6 Smokeless Tobacco Not on file - continue with abstinence - also smokes marijuana - lung cancer screening - has repeat LDTC set up via Pulmonology CTA chest 03/2023 IMPRESSION: No pulmonary embolism. Mild pulmonary edema and small pleural effusions. Bibasilar opacities likely represent passive atelectasis. Noncalcified 7 mm nodule in the left upper lobe is new. Follow-up CT scan in 6-12 months is recommended. Per Fleischner Society Guidelines, non-contrast chest CT at 6-12 months is recommended. If the nodule is stable at time of repeat CT, then future CT at 18-24 months (from todays scan) is considered optional for low-risk patients, but is recommended for high-risk patients. Mediastinal and hilar lymphadenopathy is likely reactive. Attention on follow-up imaging is recommended. Mild circumferential wall thickening of the distal esophagus may be secondary to esophagitis. Correlation with symptoms recommended. Consider follow-up endoscopy if clinically warranted. Moderate pulmonary emphysema. Recommend evaluation for annual lung cancer screening enrollment if the patient qualifies based on clinical factors and smoking history. Assessment & Plan (11/15/2023 2:19 PM CDT): Social History Tobacco Use Smoking Status Former Current packs/day: 0.00 Average packs/day: 2.0 packs/day for 60.0 years (120.0 ttl pk-yrs) Types: Cigarettes Start date: 1966 Quit date: 10/23/2022 Years since quittin.0 Smokeless Tobacco Not on file - continue with abstinence - also smokes marijuana - lung cancer screening - up to date, has already had CTA chest 03/2023 CTA chest 03/2023 IMPRESSION: No pulmonary embolism. Mild pulmonary edema and small pleural effusions. Bibasilar opacities likely represent passive atelectasis. Noncalcified 7 mm nodule in the left upper lobe is new. Follow-up CT scan in 6-12 months is recommended. Per Fleischner Society Guidelines, non-contrast chest CT at 6-12 months is recommended. If the nodule is stable at time of repeat CT, then future CT at 18-24 months (from todays scan) is considered optional for low-risk patients, but is recommended for high-risk patients. Mediastinal and hilar lymphadenopathy is likely reactive. Attention on follow-up imaging is recommended. Mild circumferential wall thickening of the distal esophagus may be secondary to esophagitis. Correlation with symptoms recommended. Consider follow-up endoscopy if clinically warranted. Moderate pulmonary emphysema. Recommend evaluation for annual lung cancer screening enrollment if the patient qualifies based on clinical factors and smoking history. Assessment & Plan (05/17/2023 2:37 PM CDT): Social History Tobacco Use Smoking Status Former Current packs/day: 0.00 Average packs/day: 2.0 packs/day for 60.0 years (120.0 ttl pk-yrs) Types: Cigarettes Start date: 1966 Quit date: 10/23/2022 Years since quittin.5 Smokeless Tobacco Not on file - continue with abstinence - also smokes marijuana - lung cancer screening - up to date, has already had CTA chest 03/2023 CTA chest 03/2023 IMPRESSION: No pulmonary embolism. Mild pulmonary edema and small pleural effusions. Bibasilar opacities likely represent passive atelectasis. Noncalcified 7 mm nodule in the left upper lobe is new. Follow-up CT scan in 6-12 months is recommended. Per Fleischner Society Guidelines, non-contrast chest CT at 6-12 months is recommended. If the nodule is stable at time of repeat CT, then future CT at 18-24 months (from todays scan) is considered optional for low-risk patients, but is recommended for high-risk patients. Mediastinal and hilar lymphadenopathy is likely reactive. Attention on follow-up imaging is recommended. Mild circumferential wall thickening of the distal esophagus may be secondary to esophagitis. Correlation with symptoms recommended. Consider follow-up endoscopy if clinically warranted. Moderate pulmonary emphysema. Recommend evaluation for annual lung cancer screening enrollment if the patient qualifies based on clinical factors and smoking history. Assessment & Plan (03/22/2023 2:52 PM REHAB DIRECTOR OCCUPATIONAL THERAPIST): Social History Tobacco Use Smoking Status Former Packs/day: 2.00 Years: 60.00 Additional pack years: 0.00 Total pack years: 120.00 Types: Cigarettes Start date: 1966 Quit date: 10/23/2022 Years since quittin.4 Smokeless Tobacco Not on file - continue with abstinence - also smokes marijuana Coronary artery disease of [place] artery of [place] heart with stable angina pectoris 11/09/2022 Overview (03/14/2023): Severe three-vessel CAD by catheterization 07 November 2022 () with 100% mid RCA, 70% ostial LAD, 60% mid circumflex and 95% ostial OM2 branch. Ostial LAD was insignificant by IFR study. Assessment & Plan (05/29/2024 10:46 PM CDT): - chronic, stable - established with Cardiology at [facility] - Severe three-vessel CAD by catheterization 07 November 2022 () with 100% mid RCA, 70% ostial LAD, 60% mid circumflex and 95% ostial OM2 branch. Ostial LAD was insignificant by IFR study. - currently on aspirin 81 mg daily and Plavix 75 mg daily - currently on Atorvastatin 10 mg nightly --> not at goal LDL so change to Atorvastatin 20 mg nightly, script sent in - quit smoking, continue with abstinence - recheck labs, order placed with results as shown below The current medical regimen is effective; continue present plan and medications with changes made above Lab Results Component Value Date LDLCALC 124 05/29/2024 Assessment & Plan (11/15/2023 2:33 PM CDT): - chronic, stable - established with Cardiology at [facility] - Severe three-vessel CAD by catheterization 07 November 2022 () with 100% mid RCA, 70% ostial LAD, 60% mid circumflex and 95% ostial OM2 branch. Ostial LAD was insignificant by IFR study. - currently on aspirin 81 mg daily and Plavix 75 mg daily - currently on Atorvastatin 10 mg nightly - continue current therapy Lab Results Component Value Date LDLCALC 104 03/22/2023 Assessment & Plan (05/17/2023 2:26 PM CDT): - chronic, stable - established with Cardiology at [facility] - Severe three-vessel CAD by catheterization 07 November 2022 () with 100% mid RCA, 70% ostial LAD, 60% mid circumflex and 95% ostial OM2 branch. Ostial LAD was insignificant by IFR study. - currently on aspirin 81 mg daily - started Atorvastatin 10 mg nightly, script sent in on last visit - continue current therapy Lab Results Component Value Date LDLCALC 104 03/22/2023 Assessment & Plan (03/30/2023 8:19 AM REHAB DIRECTOR OCCUPATIONAL THERAPIST): - chronic, stable - established with Cardiology at [facility] - Severe three-vessel CAD by catheterization 07 November 2022 (RG) with 100% mid RCA, 70% ostial LAD, 60% mid circumflex and 95% ostial OM2 branch. Ostial LAD was insignificant by IFR study. - currently on aspirin 81 mg daily - not on statin therapy --> start Atorvastatin 10 mg nightly, script sent in Lab Results Component Value Date LDLCALC 104 03/22/2023 Chronic obstructive pulmonary disease 11/06/2022 Overview (11/15/2023): Managed by Pulmonology Assessment & Plan (05/29/2024 5:01 PM CDT): - chronic condition, better controlled - established with Dr. Rosario Pulmonology - currently on Symbicort and Incruse ellipta and has albuterol inhaler, duoneb nebulizer - long smoking history, has quit,Continue with abstinence - has LDCT ordered by Pulmonology - using home oxygen 2 liters at night only that he got at time of discharge from hospitalization in the past The current medical regimen is effective; continue present plan and medications. Assessment & Plan (11/15/2023 2:18 PM CDT): - chronic condition, better controlled, denies wheezing and reports less shortness of breath - established with Dr. Rosario Pulmonology - currently on Symbicort and has albuterol inhaler - long smoking history, recently quit - has PFT and LDCT ordered by Pulmonology - using home oxygen 2 liters at night only that he got at time of discharge from hospitalization in the past - continue current management Assessment & Plan (05/17/2023 2:54 PM CDT): - chronic condition, better controlled, denies wheezing and reports less shortness of breath - established with Dr. Rosario Pulmonology - currently on Symbicort and has albuterol inhaler - long smoking history, recently quit - has PFT and LDCT ordered by Pulmonology - using home oxygen 2 liters at night only that he got at time of discharge from hospitalization in the past - continue current management Assessment & Plan (03/30/2023 8:22 AM REHAB DIRECTOR OCCUPATIONAL THERAPIST): - chronic condition - established with Dr. Rosario Pulgabrielology - currently on Symbicort and has albuterol inhaler - long smoking history, recently quit - has PFT and LDCT ordered by Pulmonology - he is using home oxygen 2 liters that he got at time of discharge from hospitalization in the past - documentation states his welding process engineer was planning to order a nebulizer for him, he is looking for it and will contact the office Essential hypertension 11/06/2022 Assessment & Plan (05/29/2024 2:38 PM CDT): Blood Pressure Management BP Readings from Last 3 Encounters: 05/29/24 130/76 03/19/24 132/71 12/04/23 140/60 Chronic condition Status - is adequately controlled. Has known CAD and CHF Current medications are: Spirinolactone 25 mg daily, Entresto 24-26 mg BID, , Coreg 3.125mg BID Lasix 40 mg daily PRN only for lower extremity edema Patient is compliant with medications. Patient denies any side effects or adverse side effects from the medication/s. Follow a low salt diet The current medical regimen is effective; continue present plan and medications. The 10-year ASCVD risk score (Silverio DEL CASTILLO, et al., 2019) is: 27.4% Values used to calculate the score: Age: 73 years Sex: Male Is Non- : No Diabetic: No Tobacco smoker: No Systolic Blood Pressure: 130 mmHg Is BP treated: Yes HDL Cholesterol: 44 mg/dL Total Cholesterol: 177 mg/dL Lab Results Component Value Date LDLCALC 104 03/22/2023 Lab Results Component Value Date GLUCOSE 113 03/22/2023 CALCIUM 8.8 03/22/2023 SODIUM 144 03/22/2023 POTASSIUM 4.6 03/22/2023 CO2 32 03/22/2023 CHLORIDE 103 03/22/2023 BUNSER 14 03/22/2023 CREATININE 1.10 03/22/2023 Assessment & Plan (11/15/2023 2:18 PM CDT): Blood Pressure Management BP Readings from Last 3 Encounters: 11/15/23 140/70 10/18/23 112/60 08/17/23 114/61 Chronic condition Status - is adequately controlled. Has known CAD and CHF Current medications are: Spirinolactone 25 mg daily, Entresto 24-26 mg BID, Lasix 40 mg daily, Coreg 3.125mg BID Patient is compliant with medications. Patient denies any side effects or adverse side effects from the medication/s. Follow a low salt diet Monitor blood pressure regularly at home The 10-year ASCVD risk score (Silverio DEL CASTILLO, et al., 2019) is: 30.7% Values used to calculate the score: Age: 73 years Sex: Male Is Non- : No Diabetic: No Tobacco smoker: No Systolic Blood Pressure: 140 mmHg Is BP treated: Yes HDL Cholesterol: 44 mg/dL Total Cholesterol: 177 mg/dL Lab Results Component Value Date LDLCALC 104 03/22/2023 Lab Results Component Value Date GLUCOSE 113 03/22/2023 CALCIUM 8.8 03/22/2023 SODIUM 144 03/22/2023 POTASSIUM 4.6 03/22/2023 CO2 32 03/22/2023 CHLORIDE 103 03/22/2023 BUNSER 14 03/22/2023 CREATININE 1.10 03/22/2023 Assessment & Plan (09/23/2023 11:56 PM CDT): Blood Pressure Management BP Readings from Last 3 Encounters: 08/17/23 114/61 07/13/23 100/62 06/21/23 110/60 Chronic condition Status - is adequately controlled. Has known CAD and CHF Current medications are: Spirinolactone 25 mg daily, Entresto 24-26 mg BID, Lasix 40 mg daily, Coreg 3.125mg BID Patient is compliant with medications. Patient denies any side effects or adverse side effects from the medication/s. Follow a low salt diet Monitor blood pressure regularly at home The 10-year ASCVD risk score (Silverio DEL CASTILLO, et al., 2019) is: 22.4% Values used to calculate the score: Age: 73 years Sex: Male Is Non- : No Diabetic: No Tobacco smoker: No Systolic Blood Pressure: 114 mmHg Is BP treated: Yes HDL Cholesterol: 44 mg/dL Total Cholesterol: 177 mg/dL Lab Results Component Value Date LDLCALC 104 03/22/2023 Lab Results Component Value Date GLUCOSE 113 03/22/2023 CALCIUM 8.8 03/22/2023 SODIUM 144 03/22/2023 POTASSIUM 4.6 03/22/2023 CO2 32 03/22/2023 CHLORIDE 103 03/22/2023 BUNSER 14 03/22/2023 CREATININE 1.10 03/22/2023 Assessment & Plan (05/17/2023 2:37 PM CDT): Blood Pressure Management BP Readings from Last 3 Encounters: 05/17/23 110/64 03/22/23 122/68 03/08/23 104/45 Chronic condition Status - is adequately controlled. Has known CAD and CHF Current medications are: Spirinolactone 25 mg daily, Entresto 24-26 mg BID, Lasix 40 mg daily, Coreg 3.125mg BID Patient is compliant with medications. Patient denies any side effects or adverse side effects from the medication/s. Follow a low salt diet Monitor blood pressure regularly at home The 10-year ASCVD risk score (Silverio DEL CASTILLO, et al., 2019) is: 19.8% Values used to calculate the score: Age: 72 years Sex: Male Is Non- : No Diabetic: No Tobacco smoker: No Systolic Blood Pressure: 110 mmHg Is BP treated: Yes HDL Cholesterol: 44 mg/dL Total Cholesterol: 177 mg/dL Lab Results Component Value Date LDLCALC 104 03/22/2023 Lab Results Component Value Date GLUCOSE 113 03/22/2023 CALCIUM 8.8 03/22/2023 SODIUM 144 03/22/2023 POTASSIUM 4.6 03/22/2023 CO2 32 03/22/2023 CHLORIDE 103 03/22/2023 BUNSER 14 03/22/2023 CREATININE 1.10 03/22/2023 Assessment & Plan (03/22/2023 2:45 PM REHAB DIRECTOR OCCUPATIONAL THERAPIST): Blood Pressure Management BP Readings from Last 3 Encounters: 03/22/23 122/68 03/08/23 104/45 03/01/23 98/50 Chronic condition Status - is adequately controlled. Current medications are: Spirinolactone 25 mg daily, Entresto 24-26 mg BID, Lasix 40 mg daily, Coreg 3.125mg BID Patient is compliant with medications. Patient denies any side effects or adverse side effects from the medication/s. Follow a low salt diet Monitor blood pressure regularly at home The ASCVD Risk score (Silverio DEL CASTILLO, et al., 2019) failed to calculate for the following reasons: The valid total cholesterol range is 130 to 320 mg/dL Lab Results Component Value Date LDLCALC 64 11/07/2022 Lab Results Component Value Date GLUCOSE 109 03/07/2023 CALCIUM 9.4 03/07/2023 SODIUM 143 03/07/2023 POTASSIUM 3.5 03/07/2023 CO2 31 03/07/2023 CHLORIDE 102 03/07/2023 BUNSER 10 03/07/2023 CREATININE 0.85 03/07/2023 Encounter for screening colonoscopy 11/01/2022 Overview (05/29/2024): Scheduled for September, Assessment & Plan (05/29/2024 2:37 PM CDT): - past due, postponed his last colonoscopy but it is now scheduled for February of 2024 --> then was scheduled for 02/20/24 but postponed it --> now scheduled for 09/08/2024 Assessment & Plan (12/02/2023 9:10 PM CDT): - past due, postponed his last colonoscopy but it is now scheduled for February of 2024 Assessment & Plan (09/23/2023 11:53 PM CDT): - past due, postponed his last colonoscopy but it is now scheduled for February of 2024 Assessment & Plan (03/22/2023 2:57 PM REHAB DIRECTOR OCCUPATIONAL THERAPIST): - past due, postponed due to his heard condition Degeneration of lumbar intervertebral disc 04/24 Multiple nodules of lung 12/11/2021 Subclinical hyperthyroidism 03/03/2019 Assessment & Plan (05/29/2024 10:45 PM CDT): - chronic condition, persisting - noted in the past as well - recheck labs, order placed with results as shown below - will continur to monitor Lab Results Component Value Date TSH 0.45 03/22/2023 TSH 0.21 (L) 11/07/2022 FREET4 1.14 11/07/2022 Vitamin D deficiency 04/05/2016 Assessment & Plan (05/29/2024 10:44 PM CDT): - hx of vitamin D deficiency - recheck labs, order placed with results updated below - start Vitamin D3 5000 international units daily, script sent in Lab Results Component Value Date 25HYDROVITD 9 (L) 05/29/2024 Resolved Problems Problem Noted Date Diagnosed Date Resolved Date Headache 12/13/2023 05/29/2024 Tobacco dependence syndrome 12/13/2023 05/29/2024 Pleural effusion 03/12/2023 05/29/2024 Pulmonary edema 03/12/2023 05/29/2024 Decreased thyroid stimulatin g hormone (TSH) level 02/12/2023 05/29/2024 Severe protein-calorie malnutrition 11/08/2022 03/30/2023 Acute respiratory failure wi th hypoxia and hypercapnia 11/06/2022 03/22/2023 Back pain with radiation 09/27/2017 High prostate specific antigen (PSA) 04/05/2016 05/29/2024 Encounters Date Type Department Care Team Description 07/07/2024 Telephone [facility] Primary Care at [address] [phone] Tereso Martínez MD Medical Question/Miscellaneous 07/03/2024 7:15 PM CDT - 07/03/2024 11:59 PM CDT Hospital Encounter [facility] [address] [place] [address] Hypersomnolence Discharge Disposition: Discharge to home or self care 07/03/2024 Orders Only [facility] Pulmonary at [place] [address] [facility] [address] [place] [address] Tamir Rosario MD Pulmonary nodules (Primary Dx) 07/02/2024 Telephone [facility] Pulmonary at [address] [place] [phone] results 06/17/2024 10:30 AM CDT Office Visit [facility] Pulmonary at [address] [place] [phone] Tamir Rosario MD Chronic obstructive pulmonary disease, unspecified COPD type (HCC) (Primary Dx); Nicotine dependence, cigarettes, in remission; Chronic systolic heart failure (HCC); Chronic respiratory failure with hypoxia (HCC); Hypersomnolence; Gastroesophageal reflux disease without esophagitis 06/13/2024 11:05 AM CDT - 06/13/2024 11:59 PM CDT Hospital Encounter [address] [address] Nicotine dependence, cigarettes, in remission Discharge Disposition: Discharge to home or self care 06/09/[address] [address] Shabana Rashid RN 06/04/2024 10:00 AM CDT Ancillary Procedure [place] [employer] [address] [place] [id number] VT (ventricular tachycardia) (HCC); Ischemic cardiomyopathy; Presence of double chamber automatic cardioverter/defibrilla tor (AICD) 05/29/2024 8:45 PM CDT - 05/29/2024 11:59 PM CDT Hospital Encounter [address] [address] Vitamin D deficiency; Prostate cancer screening; Subclinical hyperthyroidism; Coronary artery disease of [place] artery of [place] heart with stable angina pectoris; Essential hypertension; Need for hepatitis B screening test Discharge Disposition: Discharge to home or self care 05/29/2024 3:00 PM CDT Lab [facility] Outpatient Lab at [address] [phone] Essential hypertension (Primary Dx) 05/29/2024 1:30 PM CDT [facility] at [address] [phone] Tereso Martínez MD Pulmonary emphysema, unspecified emphysema type (HCC) (Primary Dx); Essential hypertension; Personal history of tobacco use; Gastroesophageal reflux disease, unspecified whether esophagitis present; Chronic systolic congestive heart failure (HCC); Vitamin D deficiency; Subclinical hyperthyroidism; Coronary artery disease of [place] artery of [place] heart with stable angina pectoris; Need for hepatitis B screening test; Encounter for screening colonoscopy; Prostate cancer screening 05/29/2024 Results Follow-Up [facility] Primary Care at [address] [phone] Tereso Martínez MD Vitamin D 25 hydroxy, PSA screen, Thyroid Function Wake, Additional followed-up results: 8 05/14/2024 Telephone [facility] at [address] [place] [phone] Carmella Presley LPN 04/17/2024 Telephone [facility] Pulmonary at [address] [place] [phone] Tamir Rosario MD from Last 3 Months Immunizations Immunization Administration Dates Next Due Influenza, Quadrivalent, Hig h Dose, Preservative Free, Intrr 11/07/2021,02/17/2021 Influenza, Trivalent, High D ose, Split, Preservative Free, Intramuscular 12/04/2018,11/07/2016 Influenza, Unspecified 11/15/2023(Deferr ed: Patient Refused),05/04/2023(Deferred: Patient Refused) Pneumococcal Conjugate PCV 13 11/07/2016 Pneumococcal Polysaccharide PPV23 06/01/2021 Surgical History Surgery Date Site/Laterality Comments NO PAST SURGERIES PHRENIC NERVE PACEMAKER IMPLANTATION 02/05/2023 - 2023 Medical History Medical History Date Comments Hypertension COPD (chronic obstructive pulmonary disease) (HC C) Hyperthyroidism Family History Medical History Relation Name Comments Prostate cancer Brother Heart attack Father Cancer Mother Relation Name Status Comments Brother Father Mother Social History Tobacco Use Types Packs/Day Years Used Date Smoking Tobacco: Former Cigarettes 2 60 1 966 - 10/23/2022 Tobacco Cessation:Counseling Given: Not Answered AUDIT-C Answer Date Recorded Q1: How often [...] on file Legal Sex Male 7:06 PM REHAB DIRECTOR OCCUPATIONAL THERAPIST Gender Identity Not on file Sexual Orientation Not on file Obstetrics History Last Filed Vital Signs Vital Sign Reading Time Taken Comments Blood Pressure 138/70 06/17/2024 10:37 AM CDT Pulse 67 06/17/2024 10:37 AM CDT Temperature 36.9 C (98.4 F) 06/17/2024 10:37 AM CDT Respiratory Rate 18 03/19/2024 2:13 PM REHAB DIRECTOR OCCUPATIONAL THERAPIST Oxygen Saturation 90% 06/17/2024 10: 37 AM CDT Inhaled Oxygen Concentration - - Weight 73.4 kg (161 lb 14.4 oz) 025 10:37 AM CDT Height 167.6 cm (5' 6) 06/17/2024 10:3 7 AM CDT Body Mass Index 26.13 06/17/2024 10:37 AM CDT Plan of Treatment Upcoming Encounters Date Type Department Care Team (Late st Contact Info) Description 09/08/2024 9:30 AM CDT Hospital Encounter [address] [address] Love Tinsley MD [address] [facility] [place] [address] 09/08/2024 9:30 AM CDT - 09/08/2024 10:00 AM CDT Surgery [address] [address] Love Tinsley MD [address] [facility] [place] [address] COLONOSCOPY Scheduled Procedures Name Priority Associated Diagnoses Date/Ti me COLONOSCOPY Encounter for screening colonoscopy 09/08/2024 9:30 AM CDT Health Maintenance Due Date Last Done Comments Colon Cancer Screening-Colonoscopy 1950 DTaP/Tdap/Td Vaccine (1 - Tdap) 1960 Zoster Vaccine (1 of 2) 08/08/1999 Covid-19 Vaccine (3 - 2023-2 5 season) 2023 07/23/2020, 06/24/2020 Lung Cancer Screening 09/11/2024 06/13/2024, 024 Influenza Vaccine (Season Ended) 2024 11/07/2021, 02/17/2021, 12/04/2018, Additional history exists Well Visit 65+ 11/14/2024 11/15/2023 Depression Screening 05/29/2025 05/29/2024, 11/15/2023, 07/13/2023, Additional history exists Fall Risk Assessment 05/29/2025 05/29/2024, 11/15/2023, 07/13/2023, Additional history exists Prostate Cancer Screening-PSA 05/29/2026 05/29/2024, 03/22/2023 Pneumococcal vaccine 65+ Completed 06/01/2021, 04/2016 Hepatitis C Screening Completed 03/22/2023 Abdominal Aortic Aneurysm (A AA) Screen Completed 04/25/2023 Hepatitis B Screening Completed 05/29/2024 Medical Devices Implanted Type Area Plate Hanger Device Identifier Shelf Expiration Date Model / Serial / Lot [employer] Defibrillator Cardiac Rivacor Promri Implantable Df4 Sterile Latex Free 7 [id number] - [id number] - [id number] Implanted:Qty: 1 on 03/07/2023 by Rip Morgan MD at [facility] ICD [employer] 01/04/2025 [id number] / [id number] / [employer] Plexa Promri Lead Icd S 65 [id number] - [id number] - [id number] Implanted:Qty: 1 on 03/07/2023 by Rip Morgan MD at [facility] Lead [employer] 12/05/2024 [id number] / [id number] / [employer] Endocardial Pacing Lead Manolori Lokesh Jt 53 [id number] - [id number] - [id number] Implanted:Qty: 1 on 03/07/2023 by Rip Morgan MD at [facility] Lead [employer] 01/04/2025 [id number] / [id number] / Cordis Mynxgrip 5fr Balloon Catheter Integrate Sealant Lock Latex Free [id number] - [id number] Implanted:Qty: 1 on 11/07/2022 by Arabella Restrepo MD at [facility] [employer] 09/04/2024 [id number] / / [id number] Medtronic Inc Tyrx Absorbable Antibacterial Envelope-Large 3.3x2.9in [id number] - [id number] Implanted:Qty: 1 on 03/07/2023 by Rip Morgan MD at [facility] [employer] 11/26/2023 [id number] / / [id number] Procedures Procedure Name Priority Date/Time Associated Diagnosis Comments PSG (SIMPLE) Routine 07/04/2024 9:[address] LUNG CANCER SCREENING Schedule Routine, Read Routine (OP Routine) 06/13/2024 11:35 AM CDT Nicotine dependence, cigarettes, in remission DEVICE CHECK - REMOTE Routine 06/03/2024 11:34 AM CDT VT (ventricular tachycardia) (HCC) Ischemic cardiomyopathy Presence of double chamber automatic cardioverter/defibril lator (AICD) T3, FREE Routine 05/29/2024 12:00 PM CDT EGFR Routine 05/29/2024 12:00 PM CDT Essential hypertension T4, FREE Routine 05/29/2024 12:00 PM CDT Subclinical hyperthyroidism DIFFERENTIAL AUTO Routine 05/29/2024 12:00 PM CDT Essential hypertension CBC WITH AUTO DIFFERENTIAL Routine 05/29/2024 12:00 PM CDT Essential hypertension COMPREHENSIVE METABOLIC PANEL Routine 05/29/2024 12:00 PM CDT Essential hypertension LIPID PANEL Routine 05/29/2024 12:00 PM CDT Coronary artery disease of [place] artery of [place] heart with stable angina pectoris THYROID FUNCTION CASCADE Routine 05/29/2024 12:00 PM CDT Subclinical hyperthyroidism PSA SCREEN Routine 05/29/2024 12:00 PM CDT Prostate cancer screening VITAMIN D 25 HYDROXY Routine 05/29/2024 12:00 PM CDT Vitamin D deficiency HEPATITIS B SURFACE ANTIGEN Routine 05/29/2024 12:00 PM CDT Need for hepatitis B screening test HEPATITIS B CORE ANTIBODY, TOTAL Routine 05/29/2024 12:00 PM CDT Need for hepatitis B screening test HEPATITIS B SURFACE ANTIBODY (IMMUNE STATUS) Routine 05/29/2024 12:00 PM CDT Need for hepatitis B screening test US ABDOMINAL AORTIC ANEURYSM SCREENING Schedule Routine, Read Routine (OP Routine) 04/25/2023 11:28 AM CDT Screening for abdominal aortic aneurysm HEPATITIS C ANTIBODY Routine 03/22/2023 3:45 PM REHAB DIRECTOR OCCUPATIONAL THERAPIST Need for hepatitis C screening test from Last 3 Months or Most Recently Relevant to Health Maintenance Results * PSG (07/04/2024 9:00 AM CDT) Impressions Ernie Menezes MD - 07/04/2024 9:00 AM CDT Indication for study: Mr. Louis is a 73-year-old gentleman chief complaints of snoring, unrefreshing sleep and daytime fatigue and tiredness. Vital statistics: Age: 73 years Height: 66 in Weight: 161 lb BMI: 26.2 Procedure: A polysomnographic sleep study was performed. Variables monitored and recorded during the study; EEG, EOG, EKG, Chin EMG, snoring, lower extremity EMG, nasal and oral airflow, chest and abdominal wall movements, oxygen saturation and audio/video monitoring . Unless otherwise noted, polysomnogram was recorded and scored in accordance with recommended parameters as outlined in the AASM Manual for the Scoring of Sleep and Associated Events, Version 2.6. Hypopneas were scored in accordance with acceptable parameters as outlined in Chapter VIII, Part 1: Rules for Adults, Category D, Section 1B. Description of polysomnography findings: The patient had 447.7 minute of monitored time. 280.5 minutes of total sleep was present. Sleep efficiency was 62.7%. Latency lights out to stage N1 was 26.5 minute, latency stage N2 from sleep onset was 1.5 minute, and latency to stage REM from sleep onset 165 minutes. Sleep stage recording stage wake of 168 minute. Stage non-REM comprised 238.5 minute (85% of total sleep time). This includes stage N1 was 30.5 minute (10.9% total sleep time), stage N2 of 208 minute (74.2% total sleep time). Stage REM comprised 42 minute (15% total sleep time. ) Arousal analysis revealed total of 67 arousals. The arousal index was 14.3. There were 37 spontaneous arousals. The spontaneous arousal index was 7.9. The apnea-hypopnea index was 3.4. The AHI was 11.2 in supine position, and 0 in the nonsupine position. There were 4 obstructive apneas and 12 hypopneas recorded. Baseline oxygen saturation was 91.3%. Lowest oxygen saturation was 86%. 5.1 minute oxygen saturation less than 88% documented. Snoring was mild. Limb movement recording revealed 13 periodic limb movements. Periodic limb movement index was 2.8. Periodic limb movement arousal index was 0. Average heart rate during 66.1, and sleep was 62.7 with a heart rhythm was paced Impression: 1. Reduced sleep efficiency 2. Apneas and hypopneas were present. Present study fall short of the overall criteria for obstructive sleep disorder breathing 3. 5.1 minutes oxygen saturation less than 88% documented. 4. Sleep hygiene should be reviewed to assess factors that may improve sleep quality. 5.Weight management and regular exercise should be initiated or continued 6.Avoid alcohol sedatives and other OYSTER FLOATER depression that may worsen sleep and disrupt normal sleep architecture Narrative Ernie Menezes MD - 07/04/2024 9:00 AM CDT In lab for review us Tamir Rosario MD [facility] ORDERABLES Final Re sult * CT Lung Cancer Screening (06/13/2024 11:35 AM CDT) Anatomical Region Laterality Modality Chest N/A Computed Tomogra phy 06/25/2024 8:26 AM CDT Narrative 06/25/2024 8:38 AM CDT EXAM DESCRIPTION: CT LUNG CANCER SCREENING REASON FOR STUDY: Screening CT of the chest in a former smoker with a 120 pack year smoking history. Additional history: None. TECHNIQUE: Low dose CT scan of the chest was performed without intravenous contrast using helical scanning technique. The exam extends from the lung apices through the lung bases. Automatic exposure control was used as a dose optimization technique. NOTE: This study was performed for the specific purposes of lung cancer screening and is not an alternative to diagnostic chest CT. RADIATION DOSE: CT dose index volume (CTDIvol) = 1.71 mGy COMPARISON: 06/14/2023 FINDINGS: SMOKING RELATED LUNG DISEASE: There are moderate emphysematous changes of lungs with scattered subsegmental atelectasis and scarring. There is mild biapical pleural thickening and scarring. There is no definite evidence of a pneumothorax. There are scattered mild bronchial wall thickening, which is likely related to mild chronic bronchitis/bronchiolitis. LUNG NODULES: There is interval development of patchy nodular ground-glass tree-in-bud airspace opacities in the bilateral lungs, which is most predominant in the bilateral lower lobes, and is concerning for multifocal airspace disease of infectious or inflammatory etiology. For example, there is interval development of a ground-glass nodular opacity in the anterior right upper lobe measuring 0.8 cm (axial image 41). There is interval development of an irregular ground-glass nodular opacity in the anterolateral right lower lobe measuring 0.4 cm (axial image 213). There is interval development of a subpleural nodular opacity in the lateral left lower lobe measuring 0.4 cm (axial image 202). CORONARY ARTERY CALCIFICATION: Present. OTHER: The heart size is upper limits of normal. There is no definite evidence of pericardial effusion. There are atherosclerotic changes of the thoracic aorta and coronary vessels. Right-sided cardiac device is noted. There is no definite unenhanced CT evidence of mediastinal, hilar, or axillary lymphadenopathy. There are scattered subcentimeter mediastinal lymph nodes noted with the largest measuring 0.7 cm in the precarinal region (axial image 125). Scattered calcified mediastinal and left hilar lymph nodes are noted. There is a small hiatal hernia. The visualized portions of the bilateral adrenal glands are grossly stable and unremarkable. There is mild osteopenia. There is a minimal to mild levoscoliotic curvature of the spine with degenerative changes. IMPRESSION: Interval development of patchy nodular ground-glass tree-in-bud airspace opacities in the bilateral lungs, which is most predominant in the bilateral lower lobes, and is concerning for multifocal airspace disease of infectious or inflammatory etiology. Short-term follow-up low-dose chest CT in 1-3 months is recommended to assess for resolution and to exclude the presence of an underlying pulmonary nodule as clinically indicated. Moderate emphysematous changes of lungs with scattered subsegmental atelectasis and scarring. Scattered mild bronchial wall thickening, which is likely related to mild chronic bronchitis/bronchiolitis. Lung-RADS category 0: Obscured by acute abnormality. Recommendation: Low dose CT of chest in 1-3 months. THIS IS AN ELECTRONICALLY VERIFIED FINAL REPORT 06/25/2024 8:38 AM - Electronically signed by Derek Fang D.O. PS: PS Report ID: [id number] Reading Location: [place] [address] Tamir Rosario MD [facility] [place] PROCEDURES Final Result * DEVICE CHECK - REMOTE (06/03/2024 11:34 AM CDT) Anatomical Region Laterality Modality Other Narrative 06/09/2024 3:58 PM CDT Images from the original result were not included. 06/04/2024 [email or web address] quarterly device check The complete report in its entirety is attached to this Result Text in Awning Assembler Periodic IEGM Detection Jun 04, 2024 Dual Chamber ICD implanted February 2023 Battery Status: JUWAN/100% Ap: 3% RVp: 0% AT/AF [place]: 0.0% Last device check: August 2023 Next office appointment: September 2024 No episodes recorded this monitoring period Reviewed By MISAEL Garibay MD Review and Recommendations below (please forward an in-basket message to your MA if check requires attention) us Arabella Restrepo MD [facility] PROCED URES Final Result * eGFR (05/29/2024 12:00 PM CDT) eGFR 60 >=60 mL/min/1. 73 m2 Comment: Interpretive Data Reference Interval Normal >/= 90 mL/min/1.73m2 Mildly decreased* 60 - 89 mL/min/1.73m2 Mildly to moderately decreased 45 - 59 mL/min/1.73m2 Moderately to severely decreased 30 - 44 mL/min/1.73m2 Severely decreased 15 - 29 mL/min/1.73m2 Kidney Failure < 15 mL/min/1.73m2 *Relative to young adult level Estimated glomerular filtration rate is determined by the 2020 CKD-EPI equation recommended by the National Kidney Foundation (A Unifying Approach to GFR Estimation: Recommendations of the NKF-ASK Task Force on Reassessing the Inclusion of Race in Diagnosing Kidney Disease, JASN 2020). The CKD-EPI equation should not be used for patients with unstable renal function and has not been validated in children and those over 70. Current interpretive data was last reviewed 2020. Blood 05/29/2024 12:0 0 PM CDT 05/29/2024 9:36 PM CDT us Tereso Martínez MD LAB BLOOD ORDERABLES Fi nal Result [facility] [id number] Department [place] [address] * Differential, auto (05/29/2024 12:00 PM CDT) Neutrophil abs 6.26 1.50 - 6.50 K/cumm Imm gran abs 0.04 0.00 - 0.10 K/cumm [facility] Lymphocyte abs 2.86 0.80 - 3.30 K/cumm [facility] Monocyte abs 0.72 0.20 - 0.80 K/cumm [facility] Eosinophil abs 0.21 0.00 - 0.50 K/cumm [facility] Basophil abs 0.10 0.00 - 0.10 K/cumm [facility] Neutrophil pct 61.3 % [facility] Comment: Interpretive Data Percent cell count reference ranges are not reported, since discordance with absolute values may lead to misinterpretation of CBC data. Current Interpretive Data was last revised on 2017. Imm gran pct 0.4 % [facility] Comment: Interpretive Data Percent cell count reference ranges are not reported, since discordance with absolute values may lead to misinterpretation of CBC data. Current Interpretive Data was last revised on 2017. Lymphocyte pct 28.1 % [facility] Comment: Interpretive Data Percent cell count reference ranges are not reported, since discordance with absolute values may lead to misinterpretation of CBC data. Current Interpretive Data was last revised on 2017. Monocyte pct 7.1 % [facility] Comment: Interpretive Data Percent cell count reference ranges are not reported, since discordance with absolute values may lead to misinterpretation of CBC data. Current Interpretive Data was last revised on 2017. Eosinophil pct 2.1 % [facility] Comment: Interpretive Data Percent cell count reference ranges are not reported, since discordance with absolute values may lead to misinterpretation of CBC data. Current Interpretive Data was last revised on 2017. Basophil pct 1.0 % [facility] Comment: Interpretive Data Percent cell count reference ranges are not reported, since discordance with absolute values may lead to misinterpretation of CBC data. Current Interpretive Data was last revised on 2017. Blood 05/29/2024 12:0 0 PM CDT 05/29/2024 9:27 PM CDT us Tereso Martínez MD LAB BLOOD ORDERABLES Fi nal Result [facility] [address] [address] Department [place] [address] * (ABNORMAL) Thyroid Function [place] (05/29/2024 12:00 PM CDT) TSH 0.19(L) 0.30 - 4.20 mcIUnit/mL Blood 05/29/2024 12:0 0 PM CDT 05/29/2024 9:27 PM CDT Tereso Martínez MD LAB BLOOD ORDERABLES Fi nal Result Performing Organization Address [facility] Co de Phone Number [facility] [address] [address] [facility] [place] [address] * PSA screen (05/29/2024 12:00 PM CDT) Pathologist [facility] PSA-Total 1.46 <=6.20 ng/mL Comment: Interpretive Data AGE SEX REFERENCE INTERVAL 0 minutes-150 years Female None 0 minutes-49 years Male None 50-59 years Male 0-3.90 60-69 years Male 0-5.40 70-79 years Male 0-6.20 80-150 years Male 0-6.20 The Eddi PSA Total assay procedure was used. Results from different manufacturers or methods may not be comparable. Serial testing should be performed using the same method. Current interpretive data last revised 21. Blood 05/29/2024 12:0 0 PM CDT 05/29/2024 9:27 PM CDT Tereso Martínez MD LAB BLOOD ORDERABLES Fi nal Result Performing Organization Address City/[facility] Co de Phone Number BLADEJOSÉ LUIS MAGALLANES [address] [address] [facility] [employer] [place], [place] [id number] * (ABNORMAL) CBC with auto differential (05/29/2024 12:00 PM CDT) Pathologist [facility] WBC 10.19(H) 3.80 - 9.90 K/cumm Hgb 16.7 13.0 - 17.5 g/dL [facility] Hct 53.0(H) 38.9 - 50.3 % [facility] Plt 238 150 - 400 K/cumm [facility] MPV 9.5 9.1 - 12.3 fL [facility] RBC 5.46 4.30 - 5.80 M/cumm [facility] MCV 97.1(H) 81.3 - 96.4 fL [facility] MCH 30.6 27.1 - 33.3 pg [facility] MCHC 31.5(L) 32.3 - 35.7 g/dL [facility] RDW CV 13.3 11.1 - 14.9 % [facility] RDW SD 47.5 35.7 - 48.1 fL [facility] NRBC abs 0.00 0.00 - 0.01 K/cumm [facility] Blood 05/29/2024 12:0 0 PM CDT 05/29/2024 9:27 PM CDT Tereso Martínez MD LAB BLOOD ORDERABLES Fi nal Result Performing Organization Address City/[facility]/ZIP Co de Phone Number [place] [address] [address] Department of [employer] [place], [place] [id number] * Hepatitis B core antibody, total Blood (05/29/2024 12:00 PM CDT) [facility] Hep B core IgG/IgM Nonreactive Nonreactive Comment:Testing performed by : [facility], [address] [facility], [place]., [address] Blood 05/29/2024 12:0 0 PM CDT 05/30/2024 9:52 AM CDT Tereso Martínez MD LAB MICROBIOLOGY - GENE RAL ORDERABLES Final Result [facility] [address] [address] Department [place] [address] * (ABNORMAL) Vitamin D 25 hydroxy (05/29/2024 12:00 PM CDT) [facility] Vitamin D 25-OH 9(L) 30 - 80 ng/mL Blood 05/29/2024 12:0 0 PM CDT 05/29/2024 9:27 PM CDT Tereso Martínez MD LAB BLOOD ORDERABLES Fi nal Result Performing Organization Address [facility] Co de Phone Number HENRIETTA MAGALLANES [phone] [address] [facility] [place] [address] * Hepatitis B surface antibody (immune status) Blood (05/29/2024 12:00 PM CDT) HBsAb (immune status) Nonreactive Comment: Interpretive Data Nonreactive: This result is consistent with a lack of immunity to Hepatitis B Virus when used in the setting of routine screening. Equivocal: The immune status of the individual should be further assessed, if appropriate, after consideration of clinical status, risk factors, and additional diagnostic information. Reactive: This result is consistent with immunity to Hepatitis B Virus when used in the setting of routine screening. Current interpretive data was last revised on 19. Blood 05/29/2024 12:0 0 PM CDT 05/29/2024 9:27 PM CDT Tereso Martínez MD LAB MICROBIOLOGY - GENE RAL ORDERABLES Final Result Performing Organization Address City/[facility]/ZIP Co de Phone Number HENRIETTA MAGALLANES [phone] [address] [facility] [place] [address] * Hepatitis B Surface Antigen Blood (05/29/2024 12:00 PM CDT) Pathologist [facility] HepBsAg Nonreactive Nonreactive Blood 05/29/2024 12:0 0 PM CDT 05/29/2024 9:27 PM CDT Tereso Martínez MD LAB MICROBIOLOGY - GENE RAL [place] [address] [address] [facility] [place] [address] * T3, free (05/29/2024 12:00 PM CDT) Pathologist [facility] Free T3 3.2 2.0 - 4.4 pg/mL Blood 05/29/2024 12:0 0 PM CDT 05/29/2024 9:36 PM CDT Narrative HENRIETTA - 05/29/2024 11:22 PM CDT This test was reflexed from a Free T4 result. Tereso Martínez MD LAB BLOOD ORDERABLES Fi nal Result Performing Organization Address City/[facility]/ZIP Co de Phone Number HENRIET[place] MAGALLANES [phone] [address] Department [place] [address] * T4, free (05/29/2024 12:00 PM CDT) Free T4 1.03 0.90 - 1.70 ng/dL Blood 05/29/2024 12:0 0 PM CDT 05/29/2024 9:36 PM CDT Tereso Martínez MD LAB BLOOD ORDERABLES Ed ited Result - Final Performing Organization Address [facility] de Phone Number HENRIET[place] MAGALLANES [address] [address] Department [place] [address] * (ABNORMAL) Lipid panel (05/29/2024 12:00 PM CDT) Cholesterol 178 30 - 199 mg/dL Comment: Interpretive Data Ages < or = 19 years Acceptable: <170 mg/dL Borderline high: 170-199 mg/dL High: >or= 200 mg/dL Ages > or = 20 years Desirable: <200 mg/dL Borderline high: 200-239 mg/dL High: >or= 240 mg/dL Literature References: 1. Expert Panel on Integrated Guidelines for Cardiovascular Health and Risk Reduction in Children and Adolescents. Pediatrics 2011;128:S213 2. NCEP Expert Panel. Circulation 2004;110:227 Current Interpretive Data was last revised on 2017. Triglycerides 154(H) <=149 mg/dL HENRIETTA MAGALLANES Comment: Interpretive Data Ages < or = 9 years Acceptable: <75 mg/dL Borderline high: 75-99 mg/dL High: >or= 100 mg/dL Ages 10 to 20 years Acceptable: <90 mg/dL Borderline high: 90-129 mg/dL High: >or= 130 mg/dL Ages > or = 20 years Desirable: <150 mg/dL Borderline high: 150-199 mg/dL High: 200-499 mg/dL Very high: >or= 499 mg/dL Literature References: 1. Expert Panel on Integrated Guidelines for Cardiovascular Health and Risk Reduction in Children and Adolescents. Pediatrics 2011;128:S213 2. NCEP Expert Panel. Circulation 2004;110:227 Current Interpretive Data was last revised on 2017. HDL 26(L) >=40 mg/dL HENRIETTA MAGALLANES Comment: Interpretive Data Ages < or = 19 years Acceptable: >45 mg/dL Borderline low: 40-45 mg/dL Low: <40 mg/dL Ages > or = 20 years Desirable: >or= 60 mg/dL Low: <40 mg/dL Literature References: 1. Expert Panel on Integrated Guidelines for Cardiovascular Health and Risk Reduction in Children and Adolescents. Pediatrics 2011;128:S213 2. NCEP Expert Panel. Circulation 2004;110:227 Current Interpretive Data was last revised on 2017. LDL, calculated 124 <=129 mg/dL HENRIETTA MAGALLANES Comment: Interpretive Data Ages < or = 19 years Acceptable: <110 mg/dL Borderline high: 110-129 mg/dL High: >or= 130 mg/dL Ages > or = 20 years Optimal: <100 mg/dL Near optimal: 100-129 mg/dL Borderline high: 130-159 mg/dL High: >160 mg/dL Calculated using the Jason LDL-C estimating equation. This equation was implemented on 2023. Prior to this date LDL-C was estimated using the Friedewald equation. Literature References: 1. Expert Panel on Integrated Guidelines for Cardiovascular Health and Risk Reduction in Children and Adolescents. Pediatrics 2011;128:S213 2. NCEP Expert Panel. Circulation 2004;110:227 3. Jason Powell al. AGATA Cardiol. 2020 June 05;5(5):540-548. doi: 10.1001/jamacardio.2020.0013 Current Interpretive Data was last revised on 2023. Non-HDL Cholesterol 152 mg/dL HENRIETTA MAGALLANES Comment: Interpretive Data Ages < or = 19 years Acceptable: <120 mg/dL Borderline high: 120-144 mg/dL High: >145 mg/dL Ages > or = 20 years When triglycerides are >200 mg/dL, Non-HDL cholesterol is a secondary target of therapy with treatment goals that are 30 mg/dL greater than the LDL cholesterol target. Literature References: 1. Expert Panel on Integrated Guidelines for Cardiovascular Health and Risk Reduction in Children and Adolescents. Pediatrics 2011;128:S213 2. NCEP Expert Panel. Circulation 2004;110:227 Current Interpretive Data was last revised on 2017. Chol/HDL ratio 7 [facility] Blood 05/29/2024 12:0 0 PM CDT 05/29/2024 9:27 PM CDT Narrative [facility] - 05/29/2024 10:01 PM CDT Has the patient been fasting for 8 hours or more?->No Tereso Martínez MD LAB BLOOD ORDERABLES Fi nal Result BANNERN[place] [address] [address] Department of Laboratories [place] [id number] * Comprehensive metabolic panel (05/29/2024 12:00 PM CDT) Sodium 141 135 - 145 mmol/L Potassium, pl 4.7 3.3 - 4.9 mmol/L [facility] Chloride 106 97 - 110 mmol/L [facility] CO2 25 22 - 32 mmol/L [facility] Anion gap 10 2 - 15 mmol/L [facility] BUN 17 6 - 25 mg/dL [facility] Creatinine 1.25 0.80 - 1.30 mg/dL [facility] Glucose 97 70 - 199 mg/dL [facility] Comment: Interpretive Data Fasting glucose >/= 126 mg/dl is diagnostic for diabetes. Fasting is defined as no caloric intake for at least 8 hours. Fasting glucose between 100 mg/dl to 125 mg/dl is diagnostic of prediabetes. In a patient with classic symptoms of hyperglycemia or hyperglycemic crisis, a random glucose >/= 200 mg/dl is diagnostic for diabetes. In the absence of unequivocal hyperglycemia, results should be confirmed by repeat testing. The classification and Diagnosis of Diabetes Diabetes Care 2021; 46: S19-S40. Current interpretive data was last revised 2022. Calcium 9.5 8.5 - 10.3 mg/dL [facility] Bilirubin, total 0.3 0.1 - 1.2 mg/dL [facility] Protein, pl 7.7 6.5 - 8.5 g/dL [facility] Albumin 4.3 3.5 - 5.0 g/dL [facility] Alk phos 120 40 - 130 Units/L [facility] ALT 17 7 - 55 Units/L [facility] AST 30 10 - 50 Units/L [facility] Blood 05/29/2024 12:0 0 PM CDT 05/29/2024 9:27 PM CDT us Tereso Martínez MD LAB BLOOD ORDERABLES Fi nal Result [place] [address] [address] Department of Laboratories [place], [place] [id number] * US Abdominal Aortic Aneurysm Screening (04/25/2023 11:28 AM CDT) Anatomical Region Laterality Modality Abdomen Ultrasound 04/26/2023 3:25 PM CDT Narrative 04/26/2023 3:25 PM CDT EXAM DESCRIPTION: US ABDOMINAL AORTIC ANEURYSM SCREENING REASON FOR STUDY: aaa screening, Screen for Abdominal Aortic Aneurysm TECHNIQUE: Grayscale images acquired of the aorta and stored on PACS. Selected color Doppler and spectral images recorded. COMPARISON: None FINDINGS: AORTIC CALIBER MAXIMAL PROXIMAL: 2.5 cm. MID: 1.8 cm. DISTAL: 1.7 cm. ILIAC DIAMETER RIGHT: 1 cm. LEFT: 1 cm. OTHER: No other significant finding. IMPRESSION: No abdominal aortic aneurysm. REFERENCE: Please see below follow up recommendations for abdominal aortic aneurysm surveillance per Society for Vascular Surgery Guidelines: < 2.5 cm No follow up or future screenings necessary 2.52.9 cm Recommended ultrasound follow up every 10 years 3.0-3.9 cm Recommended ultrasound follow up every 3 years 4.0-4.9 cm Recommended ultrasound follow up every 12 months, vascular surgery consult 5.0-5.4 cm Recommended ultrasound follow up every 6 months, vascular surgery consult >= 5.5 cm Referral to vascular surgeon Based upon Society for Vascular Surgery Guidelines: J Vasc Surgery 2008 50: s2s49; updated Feb 2017 J Vasc Surgery 67:277 THIS IS AN ELECTRONICALLY VERIFIED FINAL REPORT 04/26/2023 3:25 PM - Electronically signed by Asad Carlson M.D. KT: NESTOR Report ID: [id number] Reading Location: [id number] Procedure Note Asad Carlson MD - 04/26/2023 EXAM DESCRIPTION: US ABDOMINAL AORTIC ANEURYSM SCREENING REASON FOR STUDY: aaa screening, Screen for Abdominal Aortic Aneurysm TECHNIQUE: Grayscale images acquired of the aorta and stored on PACS.Selected color Doppler and spectral images recorded. COMPARISON: None FINDINGS: AORTIC CALIBER MAXIMAL PROXIMAL: 2.5 cm. MID: 1.8 cm. DISTAL: 1.7 cm. ILIAC DIAMETER RIGHT: 1 cm. LEFT: 1 cm. OTHER: No other significant finding. IMPRESSION: No abdominal aortic aneurysm. REFERENCE: Please see below follow up recommendations for abdominal aortic aneurysm surveillance per Society for Vascular Surgery Guidelines: < 2.5 cm No follow up or future screenings necessary 2.52.9 cm Recommended ultrasound follow up every 10 years 3.0-3.9 cm Recommended ultrasound follow up every 3 years 4.0-4.9 cm Recommended ultrasound follow up every 12 months, vascularsurgery consult 5.0-5.4 cm Recommended ultrasound follow up every 6 months, vascularsurgery consult >= 5.5 cm Referral to vascular surgeon Based upon Society for Vascular Surgery Guidelines: J Vasc Surgery 2009Oct 50: s2s49; updated Feb 2017 J Vasc Surgery 67:277 THIS IS AN ELECTRONICALLY VERIFIED FINAL REPORT 04/26/2023 3:25 PM - Electronically signed by Asad Carlson M.D. KT: NESTOR Report ID: [id number] Reading Location: [id number] us Tereso Dereje Martínez MD IM US PROCEDURES Final Result * Hepatitis C antibody Blood (03/22/2023 3:45 PM REHAB DIRECTOR OCCUPATIONAL THERAPIST) Hep C Ab Nonreactive Nonreactive HENRIETTA HUFFMAN (HARITHA) Comment: Interpretive Data Nonreactive: Antibodies to HCV not detected. Does NOT exclude the possibility of recent exposure to HCV. Equivocal: Equivocal for HCV antibodies. Supplemental molecular testing will be automatically performed to determine infection status in accordance with current CDC screening recommendations. Reactive: Positive for HCV antibodies. This may represent current or past HCV infection. Supplemental molecular testing will be automatically performed to determine current infection status in accordance with current CDC screening recommendations. Interpretive data was last revised on 2019. Testing performed by: [facility], [address] [place] [address]., [id number] Blood 03/22/2023 3:45 PM REHAB DIRECTOR OCCUPATIONAL THERAPIST 03/23/2023 9:13 AM REHAB DIRECTOR OCCUPATIONAL THERAPIST Tereso Martínez MD LAB MICROBIOLOGY - [facility] ORDERABLES Edited Result - Final [facility] (F[facility]) [facility] Department [place] [address] from Last 3 Months or Most Recently Relevant to Health Maintenance Insurance [facility] Advance Directives For more information, please contact: [phone] * Full Code (Latest Code Status on File) Date Activated Date Inactivated Comments 11/06/2022 9:32 AM 11/08/2022 11:08 PM Care Teams Decision Science Analyst Relationship Specialty Start Date End Date Tereso Marítnez MD PCP - General Family Medicine 03/22/23 Arabella Restrepo MD Consulting Physician Cardiology 11/08/22 Tamir Rosario MD [address] [place] [address] [address] [place], [place] [address], [place] [address] Consulting Physician Pulmonary Disease 03/22/23 Rip Morgan MD [address] [place] [address] [place] [address] Consulting Physician Cardiovascular Disease 03/22/23
--- OUTSIDE RECORDS SUMMARY | 2024-07-08 14:36 | XMS_ITS | Clinical Summary ---
Author Organization [facility] Address [address], [facility] [address] [place] [address] Phone Care Team Providers Care Game Warden Name Role Phone Marina Villafana MD Primary Care Provider Allergies No known active allergies Medications Aspirin Low Dose 81 MG Tablet Delayed Response Take 81 mg by mouth daily. 03/02/2023 Active clopidogrel (PLAVIX) 75 MG Tablet Take 75 mg by mouth daily. 03/02/2023 Active Empagliflozin (Jardiance) 10 MG Tablet Take 1 Tablet by mouth daily. 12/07/2022 Active furosemide (LASIX) 40 MG Tablet Take 1 Tablet by mouth daily. 12/13/2022 Active sacubitril-valsa rtan (Entresto) 24-26 MG Tablet Take 1 Tablet by mouth 2 times daily. 12/07/2022 Active spironolactone (ALDACTONE) 25 MG Tablet Take 1 Tablet by mouth daily. 90 Tablet 03/14/2023 Active carvedilol (COREG) 3.125 MG Tablet Take 1 Tablet by mouth 2 times daily (with meals). 180 Tablet 03/13/2023 Active Active Problems Problem Noted Date Diagnosed Date Hypoxia 03/13/2023 COPD exacerbation 03/12/2023 Systolic heart failure 03/12/2023 Pulmonary edema 03/12/2023 Pleural effusion 03/12/2023 Coronary artery calcification 03/12/2023 Social History Tobacco Use Types Packs/Day Years Used Date Smoking Tobacco: Every Day Cigarettes Smokeless Tobacco: Never Tobacco Cessation:Ready to Q uit: Not Asked; Counseling Given: Not Answered Alcohol Use Standard Drinks/Week Comments Yes 0 (1 standard drink = 0.6 oz pur e alcohol) [facility] Utilities Answer Date Recorded In the past 12 months has e electric, gas, oil, or water company threatened to shut off services in your home? Patient declined 03/12/2023 Social Connection and Isolation Panel [NHANES] A nswer Date Recorded In a typical week, how many times do you talk on the phone with family, friends, or neighbors? Patient declined 03/12/2023 How often do you get togethe r with friends or relatives? Patient declined 03/12/2023 How often do you attend episcopalian or sikhism serv ices? Patient declined 03/12/2023 Do you belong to any clubs o r organizations such as episcopalian groups, unions, fraternal or athletic groups, or school groups? Patient declined 03/12/2023 How often do you attend meet ings of the clubs or organizations you belong to? Patient declined 03/12/2023 Are you , , di vorced, , never , or living with a partner? Patient declined 03/12/2023 AUDIT-C Answer Date Recorded Q1: How often do you have a drink containing alc ohol? Patient declined 03/12/2023 Q2: How many drinks containi ng alcohol do you have on a typical day when you are drinking? Patient declined 03/12/2023 Q3: How often do you have si x or more drinks on one occasion? Patient declined 03/12/2023 Overall Financial Resource Strain (CARDIA) Answe r Date Recorded How hard is it for you to pa y for the very basics like food, housing, medical care, and heating? Patient declined 03/12/2023 [facility] - Occupational Stress Questionnaire Answer Date Recorded Do you feel stress - tense, restless, nervous, or anxious, or unable to sleep at night because your mind is troubled all the time - these days? Patient declined 03/12/2023 Exercise Vital Sign Answer Date Recorde d On average, how many days pe r week do you engage in moderate to strenuous exercise (like a brisk walk)? Patient declined On average, how many minutes do you engage in exercise at this level? Patient declined 03/12/2023 Hunger Vital Sign Answer Date Recorded Within the past 12 months, y ou worried that your food would run out before you got the money to buy more. Patient declined Within the past 12 months, t he food you bought just didn't last and you didn't have money to get more. Patient declined 06/2023 PRAPARE - Transportation Answer Date Re corded In the past 12 months, has l ack of transportation kept you from medical appointments or from getting medications? Patient declined 03/12/2023 In the past 12 months, has l ack of transportation kept you from meetings, work, or from getting things needed for daily living? Patient declined 03/12/2023 Housing Stability Vital Sign Answer Obi e Recorded In the last 12 months, was t here a time when you were not able to pay the mortgage or rent on time? Patient declined 03/12/19 24 In the last 12 months, how many places have you lived? 1 03/12/2023 In the last 12 months, was t here a time when you did not have a steady place to sleep or slept in a care home (including now)? Patient declined 03/12/2023 Sex and Gender Information Value Date Recorded Sex Assigned at Not on file Legal Sex Male 10:05 PM CDT Gender Identity Not on file Sexual Orientation Not on file Last Filed Vital Signs Vital Sign Reading Time Taken Comments Blood Pressure 115/65 12/13/2023 7:30 PM PROFESSOR OF BIOLOGICAL SCIENCES Pulse 75 12/13/2023 7:30 PM PROFESSOR OF BIOLOGICAL SCIENCES Temperature 36.4 C (97.6 F) 12/13/2023 6:03 PM PROFESSOR OF BIOLOGICAL SCIENCES Respiratory Rate 18 12/13/2023 6:03 PM PROFESSOR OF BIOLOGICAL SCIENCES Oxygen Saturation 93% 12/13/2023 7:30 PM PROFESSOR OF BIOLOGICAL SCIENCES Inhaled Oxygen Concentration - - Weight 71.2 kg (157 lb) 12/13/2023 6:03 PM PROFESSOR OF BIOLOGICAL SCIENCES Height 167.6 cm (5' 6) 12/13/2023 6:03 PM PROFESSOR OF BIOLOGICAL SCIENCES Body Mass Index 25.34 12/13/2023 6:03 PM PROFESSOR OF BIOLOGICAL SCIENCES Plan of Treatment Health Maintenance Due Date Last Done Comments Hepatitis C Virus (HCV) Screening 1950 TdaP Immunization 1950 Colonoscopy 1994 Colorectal Cancer Screening 1994 Cologuard 08/08/1999 Immunochemical Fecal Occult Blood 08/08/1999 Zoster Immunization (1 of 2) 08/08/1999 Respiratory Syncytial Virus (RSV) Immunization (Adult) (1 - Risk 60-74 years 1-dose series) 2009 SARS-COV-2 Immunization ( season) 2023 07/23/2020, 06/24/2020 Influenza Immunization (Season Ended) 2024 11/07/2021, 02/17/2021, 12/04/2018, Additional history exists Pneumococcal Immunization (50+ years) Completed 06/01/2021, 11/07/2016 Pneumococcal Immunization Combined Discontinued 06/01/2021, 11/07/2016 Hepatitis B Immunization Aged Out No longer eligible based on patient's age to complete this topic Human Papillomavirus (HPV) Immunization Aged Out No longer eligible based on patient's age to complete this topic Meningococcal Immunization (ACWY) Aged Out No longer eligible based on patient's age to complete this topic Rotavirus Immunization Aged Out No lo nger eligible based on patient's age to complete this topic Insurance MEDICAID [employer] Advance Directives * Full Code (Latest Code Status on File) Date Activated Date Inactivated Comments 03/12/2023 7:49 PM 03/13/2023 8:20 PM CPR-Full Treat ment: FULL ARREST: Attempt Resuscitation/CPR wit intubation and mechanical ventilation. PRE-ARREST: Use entire range of life support measures to stabilize the patient. Care Teams Game Warden Relationship Specialty Start Date End Date Marina Villafana MD [address] [facility] [address] [place] [address] PCP - General Internal Medicine 05/07/16
--- OUTSIDE RECORDS SUMMARY | 2024-07-08 14:36 | XMS_ITS | Referral Summary ---
Author Organization [facility] Medical Office Building B Address [address] [place] [address] Care Team Providers Care Job Estimator Name Role Phone Arabella Restrepo MD Unavailable [phone] Tereso Martínez MD Primary Care Provider Tamir Rosario MD Unavailable Rip Morgan MD Unavailable [phone] Encounters Date Type Department Care Team Description 07/07/2024 Telephone [facility] Primary Care at [address] [phone] Tereso Martínez MD Medical Question/Miscellaneous 07/03/2024 Orders Only [facility] Pulmonary at [address] [address] Tamir Rosario MD Pulmonary nodules (Primary Dx) 07/03/2024 7:15 PM CDT - 07/03/2024 11:59 PM CDT Hospital Encounter [facility] [address] [place] [address] Hypersomnolence Discharge Disposition: Discharge to home or self care 07/02/2024 Telephone [facility] Pulmonary at [address] [phone] results 06/17/2024 10:30 AM CDT Office Visit [facility] Pulmonary at [address] [place] [address] Tamir Rosario MD Chronic obstructive pulmonary disease, unspecified COPD type (HCC) (Primary Dx); Nicotine dependence, cigarettes, in remission; Chronic systolic heart failure (HCC); Chronic respiratory failure with hypoxia (HCC); Hypersomnolence; Gastroesophageal reflux disease without esophagitis 06/13/2024 11:05 AM CDT - 06/13/2024 11:59 PM CDT Hospital Encounter [facility] [address] [place] [address] Nicotine dependence, cigarettes, in remission Discharge Disposition: Discharge to home or self care 06/09/[address] [address] Shabana Rashid RN 06/04/2024 10:00 AM CDT Ancillary Procedure [place] [employer] [address] [place] [phone] VT (ventricular tachycardia) (HCC); Ischemic cardiomyopathy; Presence of double chamber automatic cardioverter/defibrilla tor (AICD) 05/29/2024 Results Follow-Up [facility] Primary Care at [address] [phone] Tereso Martínez MD Vitamin D 25 hydroxy, PSA screen, Thyroid Function [place], Additional followed-up results: 8 05/29/2024 8:45 PM CDT - 05/29/2024 11:59 PM CDT Hospital Encounter [address] [address] Vitamin D deficiency; Prostate cancer screening; Subclinical hyperthyroidism; 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; Essential hypertension; Need for hepatitis B screening test Discharge Disposition: Discharge to home or self care 05/29/2024 3:00 PM CDT Lab [facility] Outpatient Lab at [address] [phone] Essential hypertension (Primary Dx) 05/29/2024 1:30 PM CDT Office Visit [facility] Primary Care at [address] [phone] Tereso Martínez MD Pulmonary emphysema, unspecified emphysema type (HCC) (Primary Dx); Essential hypertension; Personal history of tobacco use; Gastroesophageal reflux disease, unspecified whether esophagitis present; Chronic systolic congestive heart failure (HCC); Vitamin D deficiency; Subclinical hyperthyroidism; 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; Need for hepatitis B screening test; Encounter for screening colonoscopy; Prostate cancer screening 05/14/2024 Telephone [facility] Pulmonary at [address] [place] [address] Carmella Presley LPN 04/17/2024 Telephone [facility] Pulmonary at [address] [place] [address] Tamir Rosario MD from Last 3 Months Allergies No known active allergies Medications albuterol HFA (PROVENTIL HFA,VENTOLIN HFA,PROAIR HFA) 90 mcg/actuation inhaler Inhale 2 puffs daily 1 each 024 Active Additional Information Patient not taking.Reported [...] (two) times a day 10.2 each 6 025 Active atorvastatin (LIPITOR) 20 mg tabletIndication s: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 Take 1 tablet (20 mg total) by mouth daily 90 tablet 3 025 Active carvediloL (COREG) 3.125 mg tablet TAKE [...] by mouth daily 90 tablet 3 025 Active Jardiance 10 mg tablet TAKE 1 [...] had the change to talk to his public health aides teacher but states plans to bring it up [...] medication Assessment & Plan (03/30/2023 8:18 AM BELT OPERATOR): - chronic, stable but not at goal [...] only Followed and managed by Cardiology at [facility] S/p ICD (placed 02/2023) The current medical [...] daily Followed and managed by Cardiology at [facility] S/p ICD (placed 02/2023) Continue current management [...] daily Followed and managed by Cardiology at [facility] S/p ICD (placed 02/2023) Continue current management [...] daily Followed and managed by Cardiology at [facility] S/p ICD (placed 02/2023) Continue current management Assessment & Plan (03/30/2023 8:23 AM BELT OPERATOR): Severe LV systolic dysfunction on echo 06 November 2022. Severe LV systolic dysfunction by catheterization 07 November 2022. Severe LV systolic dysfunction by MUGA 15 February 2023. This is an ischemic cardiomyopathy. Currently on Coreg 3.125 mg BID, Jardiance 10 mg daily, Entresto 24-26 mg BID, Aldactone 25 mg daily and lasix 40 m daily Followed and managed by Cardiology at [facility] Was on life vest but now has [...] history. Assessment & Plan (03/22/2023 2:52 PM BELT OPERATOR): Social History Tobacco Use Smoking Status Former Packs/day: 2.00 Years: 60.00 Additional pack years: 0.00 Total pack years: 120.00 Types: Cigarettes Start date: 1966 Quit date: 10/23/2022 Years since quittin.4 Smokeless Tobacco Not on file - continue with abstinence - also smokes marijuana Coronary artery disease of n ative artery of lummi heart with stable angina pectoris 11/09/2022 Overview (03/14/2023): Severe three-vessel CAD by catheterization 07 November 2022 (RG) with 100% mid RCA, 70% ostial LAD, 60% mid circumflex and 95% ostial OM2 branch. Ostial LAD was insignificant by IFR study. Assessment & Plan (05/29/2024 10:46 PM CDT): - chronic, stable - established with Cardiology at [facility] - Severe three-vessel CAD by catheterization 07 [...] chronic, stable - established with Cardiology at [facility] - Severe three-vessel CAD by catheterization 07 [...] chronic, stable - established with Cardiology at [facility] - Severe three-vessel CAD by catheterization 07 [...] 03/22/2023 Assessment & Plan (03/30/2023 8:19 AM BELT OPERATOR): - chronic, stable - established with Cardiology at [facility] - Severe three-vessel CAD by catheterization 07 [...] of breath - established with Dr. Rosario Pulgabrielology - [...] management Assessment & Plan (03/30/2023 8:22 AM BELT OPERATOR): - chronic condition - established with Dr. Rosario Pulmonology - currently on Symbicort and has albuterol inhaler - long smoking history, recently quit - has PFT and LDCT ordered by Pulmonology - he is using home oxygen 2 liters that he got at time of discharge from hospitalization in the past - documentation states his java golden gate developer was planning to order a nebulizer for [...] medications. The 10-year ASCVD risk score (Silverio DK, et al., 2019) is: 27.4% Values used [...] 03/22/2023 Assessment & Plan (03/22/2023 2:45 PM BELT OPERATOR): Blood Pressure Management BP Readings from Last [...] 2024 Assessment & Plan (03/22/2023 2:57 PM BELT OPERATOR): - past due, postponed due to his [...] High prostate specific antigen (PSA) 04/05/2016 05/29/2024 Immunizations Immunization Administration Dates Next Due Influenza, Quadrivalent, Hig h Dose, Preservative Free, Intrr 11/07/2021,02/17/2021 Influenza, Trivalent, High D ose, Split, Preservative Free, Intramuscular 12/04/2018,11/07/2016 Influenza, Unspecified 11/15/2023(Deferr ed: Patient Refused),05/04/2023(Deferred: Patient Refused) Pneumococcal Conjugate PCV 13 11/07/2016 Pneumococcal Polysaccharide PPV23 06/01/2021 Social History Tobacco Use Types Packs/Day Years [...] on file Legal Sex Male 7:06 PM BELT OPERATOR Gender Identity Not on file Sexual Orientation Not on file Last Filed Vital Signs Vital Sign Reading Time Taken Comments Blood Pressure 138/70 06/17/2024 10:37 AM CDT Pulse 67 06/17/2024 10:37 AM CDT Temperature 36.9 C (98.4 F) 06/17/2024 10:37 AM CDT Respiratory Rate 18 03/19/2024 2:13 PM BELT OPERATOR Oxygen Saturation 90% 06/17/2024 10: 37 AM CDT Inhaled Oxygen Concentration - - Weight 73.4 kg (161 lb 14.4 oz) 025 10:37 AM CDT Height 167.6 cm (5' 6) 06/17/2024 10:3 7 AM CDT Body Mass Index 26.13 06/17/2024 10:37 AM CDT Plan of Treatment Upcoming Encounters Date Type Department Care Team (Late st Contact Info) Description 09/08/2024 9:30 AM CDT Hospital Encounter [address] [address] Love Tinsley MD [address] [place] [address] DR STOUT [address] [place] [address] 09/08/2024 9:30 AM CDT - 09/08/2024 10:00 AM CDT Surgery [address] [address] Love Tinsley MD [address] [place] [address] [place] [address] COLONOSCOPY Scheduled Procedures Name Priority Associated Diagnoses Date/Ti me COLONOSCOPY Encounter for screening colonoscopy 09/08/2024 9:30 AM CDT Medical Devices Implanted Type Area Coutierier Device Identifier Shelf Expiration Date Model / Serial / Lot Clue Appronik Inc Defibrillator Cardiac Rivacor Promri Implantable Df4 Sterile Latex Free 7 [id number] - [id number] - [id number] Implanted:Qty: 1 on 03/07/2023 by Rip Morgan MD at [facility] ICD Biotronik Inc 01/04/2025 [id number] / [id number] / Biotronik Inc Plexa Promri Lead Icd S 65 [id number] - [id number] - [id number] Implanted:Qty: 1 on 03/07/2023 by Rip Morgan MD at [facility] Lead Biotronik Inc 12/05/2024 [id number] / [id number] / Biotronik Inc Endocardial Pacing Lead Promri Solia Jt [id number] - [id number] - [id number] Implanted:Qty: 1 on 03/07/2023 by Rip Morgan MD at [facility] Lead [employer] Inc 01/04/2025 [id number] 34 / [id number] / Cordis Mynxgrip 5fr Balloon Catheter Integrate Sealant Lock Latex Free [id number] - [id number] Implanted:Qty: 1 on 11/07/2022 by Arabella Restrepo MD at [facility] Cordis 09/04/2024 [id number] / / [id number] Medtronic Inc Tyrx Absorbable Antibacterial Envelope-Large 3.3x2.9in [id number] - [id number] Implanted:Qty: 1 on 03/07/2023 by Rip Morgan MD at [facility] Med[employer]onic Inc 11/26/2023 [id number] / / [id number] Procedures Procedure Name Priority Date/Time Associated Diagnosis [...] 12:00 PM CDT 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 PS: PS Report ID: [id number] Reading Location: [place] [address] Tamir Rosario MD [facility] [place] PROCEDURES Final Result * DEVICE CHECK - REMOTE (06/03/2024 11:34 AM CDT) Anatomical Region Laterality Modality Other Narrative 06/09/2024 3:58 PM CDT Images from the original result were not included. 06/04/2024 Clue ApproniHZO quarterly device check The complete report in its entirety is attached to this Result Text in Professional Skateboarder Periodic IEGM Detection Jun 04, 2024 Dual Chamber ICD implanted February 2023 Battery Status: JUWAN/100% Ap: 3% RVp: 0% AT/AF [place]: 0.0% Last device check: August 2023 Next office appointment: September 2024 No episodes recorded this monitoring period Reviewed By Melvi Galan RN BSN Review and Recommendations below (please forward an [...] MD LAB BLOOD ORDERABLES Fi nal Result [facility] [address] Department [place] [address] * Differential, auto (05/29/2024 12:00 PM CDT) Neutrophil abs 6.26 1.50 - 6.50 K/cumm Imm gran abs 0.04 0.00 - 0.10 K/cumm [facility] Lymphocyte abs 2.86 0.80 - 3.30 K/cumm [facility] Monocyte abs 0.72 0.20 - 0.80 K/cumm [facility] Eosinophil abs 0.21 0.00 - 0.50 K/cumm [facility] Basophil abs 0.10 0.00 - 0.10 K/cumm [facility] Neutrophil pct 61.3 % [facility] Comment: Interpretive Data Percent cell count reference ranges are not reported, since discordance with absolute values may lead to misinterpretation of CBC data. Current Interpretive Data was last revised on 2017. Imm gran pct 0.4 % [facility] Comment: Interpretive Data Percent cell count reference ranges are not reported, since discordance with absolute values may lead to misinterpretation of CBC data. Current Interpretive Data was last revised on 2017. Lymphocyte pct 28.1 % [facility] Comment: Interpretive Data Percent cell count reference ranges are not reported, since discordance with absolute values may lead to misinterpretation of CBC data. Current Interpretive Data was last revised on 2017. Monocyte pct 7.1 % [facility] Comment: Interpretive Data Percent cell count reference ranges are not reported, since discordance with absolute values may lead to misinterpretation of CBC data. Current Interpretive Data was last revised on 2017. Eosinophil pct 2.1 % [facility] Comment: Interpretive Data Percent cell count reference ranges are not reported, since discordance with absolute values may lead to misinterpretation of CBC data. Current Interpretive Data was last revised on 2017. Basophil pct 1.0 % [facility] Comment: Interpretive Data Percent cell count reference ranges are not reported, since discordance with absolute values may lead to misinterpretation of CBC data. Current Interpretive Data was last revised on 2017. Blood 05/29/2024 12:0 0 PM CDT 05/29/2024 9:27 PM CDT Tereso Martínez MD LAB BLOOD ORDERABLES Fi nal Result Performing Organization Address City/[facility] Co de Phone Number HENRIETTA MAGALLANES [address] [address] [facility] [place] [address] * (ABNORMAL) Thyroid Function [place] (05/29/2024 12:00 PM CDT) TSH 0.19(L) 0.30 - 4.20 mcIUnit/mL Blood 05/29/2024 12:0 0 PM CDT 05/29/2024 9:27 PM CDT Tereso Martínez MD LAB BLOOD ORDERABLES Fi nal Result Performing Organization Address [facility] de Phone Number BLADEJOSÉ LUIS [address] [address] [facility] [place] [address] * PSA screen (05/29/2024 12:00 PM CDT) PSA-Total 1.46 <=6.20 ng/mL Comment: Interpretive Data [...] ORDERABLES Fi nal Result Performing Organization Address [facility] Co de Phone Number [place] [address] [address] [facility] [place] [address] * (ABNORMAL) CBC with auto differential (05/29/2024 12:00 PM CDT) [facility] WBC 10.19(H) 3.80 - 9.90 K/cumm Hgb 16.7 13.0 - 17.5 g/dL [facility] Hct 53.0(H) 38.9 - 50.3 % [facility] Plt 238 150 - 400 K/cumm [facility] MPV 9.5 9.1 - 12.[address] [facility] RBC 5.46 4.30 - 5.80 M/cumm [facility] MCV 97.1(H) 81.3 - 96.[address] [facility] MCH 30.6 27.1 - 33.[address] [facility] MCHC 31.5(L) 32.3 - 35.7 g/dL [facility] RDW CV 13.3 11.1 - 14.9 % [facility] RDW SD 47.5 35.7 - 48.[address] [facility] NRBC abs 0.00 0.00 - 0.01 K/cumm [facility] Blood 05/29/2024 12:0 0 PM CDT 05/29/2024 9:27 PM CDT Tereso Martínez MD LAB BLOOD ORDERABLES Fi nal Result [place] MAGALLANES [address] [address] Department [place] [address] * Hepatitis B core antibody, total Blood (05/29/2024 12:00 PM CDT) [facility] Hep B core IgG/IgM Nonreactive Nonreactive Comment:Testing performed by : [facility], [address] [facility], [place]., [address] Blood 05/29/2024 12:0 0 PM CDT 05/30/2024 9:52 AM CDT Tereso Martínez MD LAB MICROBIOLOGY - GENE RAL ORDERABLES Final Result HENRIETTA MAGALLANES [address] [address] [facility] [place] [address] * (ABNORMAL) Vitamin D 25 hydroxy (05/29/2024 12:00 PM CDT) [facility] Vitamin D 25-OH 9(L) 30 - 80 ng/mL Blood 05/29/2024 12:0 0 PM CDT 05/29/2024 9:27 PM CDT Tereso Martínez MD LAB BLOOD ORDERABLES Fi nal Result Performing Organization Address [facility] Co de Phone Number [place] [address] [address] [facility] [place] [address] * Hepatitis B surface antibody (immune status) Blood (05/29/2024 12:00 PM CDT) [facility] HBsAb (immune status) Nonreactive Comment: Interpretive Data [...] RAL ORDERABLES Final Result Performing Organization Address City/[facility]/[place] [address] [address] [facility] [place] [address] * Hepatitis B Surface Antigen Blood (05/29/2024 12:00 PM CDT) [facility] HepBsAg Nonreactive Nonreactive Blood 05/29/2024 12:0 0 PM CDT 05/29/2024 9:27 PM CDT us Tereso Martínez MD LAB MICROBIOLOGY - GENE RAL ORDERABLES Final Result Performing Organization Address [facility] de Phone Number HENRIETTA MAGALLANES [address] [address] [facility] [place] [address] * T3, free (05/29/2024 12:00 PM CDT) Free T3 3.2 2.0 - 4.4 pg/mL Blood 05/29/2024 12:0 0 PM CDT 05/29/2024 9:36 PM CDT Narrative HENRIETTA MAGALLANES - 05/29/2024 11:22 PM CDT This test was reflexed from a Free T4 result. Tereso Martínez MD LAB BLOOD ORDERABLES Fi nal Result Performing Organization Address [facility] Co de Phone Number HENRIETTA MAGALLANES [address] [address] [facility] [place] [address] * T4, free (05/29/2024 12:00 PM CDT) Free T4 1.03 0.90 - 1.70 ng/dL Blood 05/29/2024 12:0 0 PM CDT 05/29/2024 9:36 PM CDT Tereso Martínez MD LAB BLOOD ORDERABLES Ed ited Result - Final Performing Organization Address [facility] Co de Phone Number HENRIETTA MAGALLANES [address] [address] [facility] [place] [address] * (ABNORMAL) Lipid panel (05/29/2024 12:00 PM [...] on 2017. Triglycerides 154(H) <=149 mg/dL [place] Comment: Interpretive Data Ages < or = [...] 2017. LDL, calculated 124 <=129 mg/dL [place] Comment: Interpretive Data Ages < or = 19 years Acceptable: <110 mg/dL Borderline high: 110-129 mg/dL High: >or= 130 mg/dL Ages > or = 20 years Optimal: <100 mg/dL Near optimal: 100-129 mg/dL Borderline high: 130-159 mg/dL High: >160 mg/dL Calculated using the Gomez LDL-C estimating equation. This equation was implemented on 2023. Prior to this date LDL-C was estimated using the Friedewald equation. Literature References: 1. Expert Panel on Integrated Guidelines for Cardiovascular Health and Risk Reduction in Children and Adolescents. Pediatrics 2011;128:S213 2. NCEP Expert Panel. Circulation 2004;110:227 3. Jason Brooks et al. AGATA Cardiol. 2020 June 05;5(5):540-548. doi: 10.1001/jamacardio.2020.0013 Current Interpretive Data was last revised on 2023. Non-HDL Cholesterol 152 mg/dL [facility] Comment: Interpretive Data Ages < or = [...] MD LAB BLOOD ORDERABLES Fi nal Result [facility] [address] [address] Department of Laboratories [place], [place] [id number] * Comprehensive metabolic panel (05/29/2024 12:00 PM [...] Glucose 97 70 - 199 mg/dL [facility] Comment: Interpretive Data Fasting glucose >/= 126 [...] LAB BLOOD ORDERABLES Fi nal Result [place] [address] [address] Department [place] [address] * US Abdominal Aortic Aneurysm Screening (04/25/2023 [...] Asad Carlson M.D. KT: NESTOR Report ID: [id number] Reading Location: [place] [address] Procedure Note Asad Carlson MD - 04/26/2023 [...] for Vascular Surgery Guidelines: J Vasc Surgery 50: s2s49; updated Feb 2017 J Vasc Surgery 67:277 THIS IS AN ELECTRONICALLY VERIFIED FINAL REPORT 04/26/2023 3:25 PM - Electronically signed by Asad Carlson M.D. KT: NESTOR Report ID: [id number] Reading Location: [id number] Tereso Martínez MD IMG US PROCEDURES Final Result * Hepatitis C antibody Blood (03/22/2023 3:45 PM BELT OPERATOR) Hep C Ab Nonreactive Nonreactive [place]RIETTA HUFFMAN ([place]) Comment: Interpretive Data Nonreactive: Antibodies to HCV [...] last revised on 2019. Testing performed by: [facility], [address] [place] [address]., [address] Blood 03/22/2023 3:45 PM BELT OPERATOR 03/23/2023 9:13 AM BELT OPERATOR Tereso Martínez MD LAB MICROBIOLOGY - GENE RAL ORDERABLES Edited Result - Final HENRIETTA NATHANAEL ([place]) 1 [facility] Department [place] [address] from Last 3 Months or Most Recently Relevant to Health Maintenance Insurance [facility] Advance Directives For more information, please contact: [phone] * Full Code (Latest Code Status on File) Date Activated Date Inactivated Comments 11/06/2022 9:32 AM 11/08/2022 11:08 PM Care Teams Job Estimator Relationship Specialty Start Date End Date Tereso Martínez MD PCP - General Family Medicine 03/22/23 Arabella Restrepo MD Consulting Physician Cardiology 11/08/22 Tamir Rosario MD [address] [place] [address] [place] [address] Consulting Physician Pulmonary Disease 03/22/23 Rip Morgan MD [address] [place] [address] [place] [address] Consulting Physician Cardiovascular Disease 03/22/23
[2024-07-08 14:42] VITALS: BP 163/85; PULSE 77; RESP 16; TEMP 36.5; O2SAT 93
--- NOTE | 2024-07-08 15:24 | ED_ITS ---
HPI - General Adult General Chief complaint: Back Pain/Injury Stated complaint: Low Back Pain Source: patient and family Mode of arrival: ambulatory Limitations: no limitations History of Present Illness HPI narrative: Patient presents for evaluation of low back pain. Symptom onset 5 days ago. He rode his bicycle the day before and is wondering if his muscles are sore from riding the bike. He states pain is constant, worse in certain positions. He states he feels like his back is breaking in two. No radicular component. He has tried taking tylenol for his symptoms. He denies any urinary symptoms. Related Data Home Medications ?Medication ?Instructions ?Recorded ?Confirmed ?Last Taken ?Type amlodipine 5 mg tablet 5 mg PO DAILY 05/25/21 10/29/22 Unknown History lisinopril 20 1 tablet PO DAILY 05/25/21 10/29/22 Unknown History mg-hydrochlorothiazide 12.5 mg tablet aspirin 81 mg tablet,delayed mg 10/16/23 Unknown History release atorvastatin 10 mg tablet mg 10/16/23 Unknown History carvedilol 3.125 mg tablet mg 10/16/23 Unknown History clopidogrel 75 mg tablet mg 10/16/23 Unknown History empagliflozin 10 mg tablet mg 10/16/23 Unknown History (Jardiance) furosemide 40 mg tablet mg 10/16/23 Unknown History pantoprazole 40 mg tablet,delayed mg PO 10/16/23 Unknown History release sacubitril 24 mg-valsartan 26 mg tablet 10/16/23 Unknown History tablet (Entresto) spironolactone 25 mg tablet mg 10/16/23 Unknown History Allergies Allergy/AdvReac Type Severity Reaction Status Date / Time No Known Allergies Allergy Verified 10/29/22 16:38 Review of Systems Review of Systems: CONSTITUTIONAL: Denies fever, chills, or sweats. EYES: Denies visual changes, redness, or discharge. ENT: Denies rhinorrhea, congestion, sore throat, or otalgia. CARDIOVASCULAR: Denies chest pain, palpitations, or edema. RESPIRATORY: Denies cough or dyspnea. GASTROINTESTINAL: Denies abdominal pain, nausea, vomiting, or diarrhea. GENITOURINARY: Denies dysuria or hematuria. SKIN: Denies rash or itching. MUSCULOSKELETAL: Reports low back pain. Denies joint pain or myalgia. NEUROLOGIC: Denies headache, numbness, dizziness, or weakness. PSYCHIATRIC: Denies anxiety or depression. [facility] Past Medical History Medical History Anxiety and depression Presence of combination internal cardiac defibrillator (ICD) and pacemaker CHF (congestive heart failure), NYHA class III Hypertension GERD (gastroesophageal reflux disease) COPD (chronic obstructive pulmonary disease) Surgical History Surgical History History of permanent cardiac pacemaker placement Family History Family History Mother Family history non-contributory Other Hypertension Social History Social History Smoking packs per day: 2 Smoking cigarettes per day: 40.0 Years smoked: 50 Smoking pack-years: 100.00 Smoking status: Former smoker Tobacco type: cigarettes Alcohol intake: former Substance use type: does not use Gender identity (if verbalized by the patient): Male Exam Narrative: GENERAL: Well-appearing, well-nourished, and in no acute distress. HEAD: Normocephalic, atraumatic. EYES: PERRLA and EOMI. ENT: Nares clear, no rhinorrhea or epistaxis. Mucous membranes moist. Oropharynx without tonsillar hypertrophy exudate or other lesions. Bilateral TMs pearly andrews nonbulging NECK: Supple. No adenopathy or masses. No carotid bruits or JVD CHEST: Clear to auscultation. No respiratory distress. No wheezes rales or rhonchi HEART: Regular rate and rhythm. No murmur heard. Normal peripheral pulses. ABDOMEN: Soft, nontender, nondistended, normal active bowel sounds. BACK: No CVA tenderness. No tenderness in midline or paraspinous muscles of lumbar spine. No tenderness over posterior pelvis or hips. Negative straight leg raise bilaterally EXTREMITIES: Normal range of motion. No edema. SKIN: Warm, dry, no rash. NEURO: No focal deficits. Alert and oriented x3. PSYCH: Normal mood and affect. Course Course Emergency Course: This is a 73-year-old male who presented for evaluation of low back pain. X- rays negative for fracture which showed spondylosis and arthritis. Urine had 2+ glucose and trace blood. This is not appear to be kidney stones. He has no CVA tenderness. We discussed treatment options at time of discharge. He declined any oral medications but was agreeable to Lidoderm patches. Advise he follow up with his primary care provider. Application of warm moist heat may help. Go to the emergency department for intractable pain or worsening symptoms. Patient in agreement with plan of care. Level of Care: Express Care Visit Vital Signs Vital signs: Vital Signs Temperature 36.5 C 07/08/24 14:42 Pulse Rate 77 07/08/24 14:42 Respiratory Rate 16 07/08/24 14:42 Blood Pressure 163/85 H 07/08/24 14:42 Pulse Oximetry 93 07/08/24 14:42 Oxygen Delivery Room Air 07/08/24 14:42 Temperature 36.5 C 07/08/24 14:42 Pulse Rate 77 07/08/24 14:42 Respiratory Rate 16 07/08/24 14:42 Blood Pressure 163/85 H 07/08/24 14:42 Pulse Oximetry 93 07/08/24 14:42 Oxygen Delivery Room Air 07/08/24 14:42 Medical Decision Making Vital Signs Vital Signs: Vital Signs Temperature 36.5 C 07/08/24 14:42 Pulse Rate 77 07/08/24 14:42 Respiratory Rate 16 07/08/24 14:42 Blood Pressure 163/85 H 07/08/24 14:42 Pulse Oximetry 93 07/08/24 14:42 Oxygen Delivery Room Air 07/08/24 14:42 Temperature 36.5 C 07/08/24 14:42 Pulse Rate 77 07/08/24 14:42 Respiratory Rate 16 07/08/24 14:42 Blood Pressure 163/85 H 07/08/24 14:42 Pulse Oximetry 93 07/08/24 14:42 Oxygen Delivery Room Air 07/08/24 14:42 Lab Data Labs: Lab Results 07/08/24 Range/Units 16:01 POC Urine Color Dark POC Urine Clarity Clear POC Urine pH 5.5 POC Ur Specif [place] 1.020 POC Urine Protein Negative (Negative) POC Ur Glucose (UA) 2+ (Negative) POC Urine Ketones Trace (Negative) POC Urine Blood Trace (Negative) POC Urine Nitrite Negative (Negative) POC Urine Bilirubin Negative (Negative) POC Urine Urobilinogen 0.2 POC U Leukocyte Esteras Negative (Negative) Imaging Data Radiologist's impression: XR pelvis 1-2V 07/08/2024 15:35 Indication: Low back pain Procedure: AP pelvis Comparison: No prior studies for comparison. Findings: Pelvic rings intact. There is lower lumbar spondylosis. There is mild osteoarthritis of the hips. No fracture, subluxation or dislocation. Sacral foramen are symmetric. Impression: 1: Mild osteoarthritis of the hips. EXAMINATION: XR lumbar spine 2-3V DATE: 07/08/2024 15:35 INDICATION: Bilateral low back pain TECHNIQUE: Anteroposterior and lateral views of the lumbar spine, and cone-down lateral view of the lumbosacral junction were obtained. COMPARISON: None. FINDINGS: 9 degrees lumbar dextrocurvature. Sagittal alignment is normal. Vertebral body heights are normal. Mild disc height loss at L1-L2, L4-L5 and L5-S1. Atherosclerotic abdominal aorta extending into the bilateral iliac and visualized proximal femoral arteries. Mild bilateral hip and sacroiliac osteoarthritis. Bone island at the right femoral head. IMPRESSION: 1. 9 degrees lumbar dextrocurvature with mild spondylosis. Discharge Plan Discharge Clinical Impression: Spondylosis, Hematuria, microscopic Patient Disposition: Home Condition: Stable Instructions: Antibiotic Form, Hematuria (ED), Acute Low Back Pain (ED) Additional Instructions: EPSOM SALT BATHS AND APPLICATION OF ICY HOT MAY HELP YOUR SYMPTOMS HEATING PAD MAY ALSO HELP PLEASE FOLLOW UP WITH YOUR PRIMARY CARE PROVIDER REGARDING REPEAT URINALYSIS REGARDING BLOOD AND GLUCOSE IN YOUR URINE TODAY. Patient Language: [place] Prescriptions: New lidocaine [Lidoderm] 5 % adhesive patch,medicated 1 patch topical DAILY Qty: 15 0RF Rx Instructions: leave on most painful area for up to 12 hrs No Action lisinopril-hydrochlorothiazide 20-12.5 mg tablet 1 tablet PO DAILY amlodipine 5 mg tablet 5 mg PO DAILY albuterol sulfate 90 mcg/actuation HFA aerosol inhaler 2 puff INHALATION QID PRN (Reason: shortness of breath or wheezing) Qty: 8 0RF furosemide 40 mg tablet atorvastatin 10 mg tablet clopidogrel 75 mg tablet aspirin 81 mg tablet,delayed release (DR/EC) spironolactone 25 mg tablet carvedilol 3.125 mg tablet pantoprazole 40 mg tablet,delayed release (DR/EC) PO Jardiance 10 mg tablet Entresto 24-26 mg tablet Follow-up/Referrals: Mauricio,Tereso Latif MD [Primary Care Provider] - Time of Disposition: 16:18
[2024-07-08 16:03] LABS: EDUAAPPEAR Clear; EDUABILI Negative (Negative); EDUABLOOD Trace (Negative); EDUACOLOR1 Dark; EDUAGLUCOSE 2+ (Negative); EDUAKETONE Trace (Negative); EDUALEUKO Negative (Negative); EDUANITRATE Negative (Negative); EDUAPH 5.5; EDUAPROTEIN Negative (Negative); EDUAUROBILI 0.2
== END 2024-07-08 16:24 | disposition home or self-care (01) ==
PROVIDERS: Emergency Provider Nurse Practitioner; PCP Family Medicine
DX: M47.816 Spondylosis without myelopathy or radiculopathy, lumbar region (principal); R31.29 Other microscopic hematuria; I11.0 Hypertensive heart disease with heart failure; I50.9 Heart failure, unspecified; J44.9 Chronic obstructive pulmonary disease, unspecified; Z87.891 Personal history of nicotine dependence
CPT/HCPCS: 72100; 72170; 81003; 99214; G0463